=== PATIENT | female | born 1990 | race Caucasian/White ===

== ENCOUNTER 2017-11-29 | Emergency (ER) | payer MEDICAID, SELFPAY ==
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
[2017-11-29 02:36] VITALS: BP 173/103; PULSE 108; RESP 18; TEMP 36.6; O2SAT 98; BMI 34.3
--- NOTE | 2017-11-29 03:07 | HMH.EDWNDL ---
ED Disposition Clinical Impression: Head contusion, Laceration of face without complication Disposition: Home, Self-Care Condition on Discharge: Good Instructions: DI for Laceration Repair -- Simple, DI for Contusion Additional Instructions: Suture removal at family practitioner's office in one week. Rx Naproxen. 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 The time I documented below is in addition to time spent performing reported procedures but includes the following listed in this critical care notation. Medical Decision Making - Medical Records MR Comment: tetanus status updated Vital Signs: 11/29/17 02:36 11/29/17 03:49 Temperature 97.9 F 98.0 F Temperature Source Oral Oral Pulse Rate 82 Pulse Rate [Brachial] 108 H Respiratory Rate 18 16 Blood Pressure 121/66 Blood Pressure [Left Arm] 173/103 Blood Pressure Mean [Left Arm] 126 Blood Pressure Source [Left Arm] Automatic Cuff Blood Pressure Position [Left Arm] Sitting 02 Sat by Pulse Oximetry 98 Oxygen Delivery Method Room Air Room Air - Lab Data Lab results reviewed: Yes: I reviewed the patient's lab results. ETOH 68 Result diagrams: 11/29/17 00:01 11/29/17 00:01 Orders (Tests/Meds): ORDERS Category Date Time Status CT cervical spine wo con Routine Cat Scan 11/29/17 00:[address] head/brain wo con Routine Cat Scan 11/29/17 00:31 Taken XR chest 2V Routine Exams 11/29/17 00:31 Taken XR elbow RT min 3V Routine Exams 11/29/17 00:31 Taken XR pelvis 1-2V Routine Exams 11/29/17 00:31 Taken - Radiology Data #1 Image(s): Chest, Elbow, Pelvis Image Reviewed: Yes I reviewed the patient's radiology results Preliminary Findings: Normal/NAD IUD - CT Data CT Scan: Head, C-Spine Time Received: 03:[address] Reviewed: Yes: I have reviewed the patient's CT results Preliminary Findings: Normal/NAD - Tommy Inquiry Pt receiving controlled substance: No Wound/Laceration HPI - General Chief Complaint: Fall Stated Complaint: Fell down flight of steps Time Seen by Provider: 11/29/17 01:15 Mode of Arrival: Ambulatory Source of Information: Patient Limitations: No Limitations Description of Symptoms (Recalled from ER Triage Doc. by RN): TRIP AND FALL DOWN A FLIGHT OF STAIRS. C/O HEAD INJURY BUT DENIES LOC, LACERATION ABOVE UPPER LIP - History of Present Illness HPI narrative: tripped and fell down stairs, No loc, has 2.0 cm lac to upper lip. states left head tender, lip swollen, No neck pain c/o rt elbow pain, no numbness, no nausea/vomiting Location: face (upper lip) Extremity Location: Right: elbow Place: home Context: accidental, fall Associated symptoms: pain (aching) Treatments prior to arrival: cold therapy (cold damp cloth) - Related Data Home Medications Medication Instructions Recorded Confirmed Ranitidine HCl 10 mg PO DAILY 11/29/17 11/29/17 Previous Rx's Medication Instructions Recorded Naproxen [Naprosyn 500mg tablet] 500 mg PO BID PRN #20 tab 11/29/17 Allergies Allergy/AdvReac Type Severity Reaction Status Date / Time Penicillins [PENICILLINS] Allergy Unknown UNKNOWN Unverified 11/16/17 14:47 [facility] History - *Social History Smoking Status: Current every day smoker Tobacco Type: cigarettes # Packs/Day (cigarettes): 1 Alcohol Intake: current Alcohol Intake Frequency:: a few times a week Substance Use Type: denies use, marijuana, opiates - Psychiatric History Expresses thoughts of harming self/others: None Suicide Plan Description: No Plan Review of Systems - Review of Systems
--- NOTE | 2017-11-29 03:11 | ED_ITS ---
ED Disposition Clinical Impression: Head contusion, Laceration of face without complication Disposition: Home, Self-Care Condition on Discharge: Good Instructions: DI for Laceration Repair -- Simple, DI for Contusion Additional Instructions: Suture removal at family practitioner's office in one week. Rx Naproxen. 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 The time I documented below is in addition to time spent performing reported procedures but includes the following listed in this critical care notation. Medical Decision Making - Medical Records MR Comment: tetanus status updated Vital Signs: 11/29/17 02:36 11/29/17 03:49 Temperature 97.9 F 98.0 F Temperature Source Oral Oral Pulse Rate 82 Pulse Rate [Brachial] 108 H Respiratory Rate 18 16 Blood Pressure 121/66 Blood Pressure [Left Arm] 173/103 Blood Pressure Mean [Left Arm] 126 Blood Pressure Source [Left Arm] Automatic Cuff Blood Pressure Position [Left Arm] Sitting 02 Sat by Pulse Oximetry 98 Oxygen Delivery Method Room Air Room Air - Lab Data Lab results reviewed: Yes: I reviewed the patient's lab results. ETOH 68 Result diagrams: 11/29/17 00:01 11/29/17 00:01 Orders (Tests/Meds): ORDERS Category Date Time Status CT cervical spine wo con Routine Cat Scan 11/29/17 00:[address] head/brain wo con Routine Cat Scan 11/29/17 00:31 Taken XR chest 2V Routine Exams 11/29/17 00:31 Taken XR elbow RT min 3V Routine Exams 11/29/17 00:31 Taken XR pelvis 1-2V Routine Exams 11/29/17 00:31 Taken - Radiology Data #1 Image(s): Chest, Elbow, Pelvis Image Reviewed: Yes I reviewed the patient's radiology results Preliminary Findings: Normal/NAD IUD - CT Data CT Scan: Head, C-Spine Time Received: 03:[address] Reviewed: Yes: I have reviewed the patient's CT results Preliminary Findings: Normal/NAD - Tommy Inquiry Pt receiving controlled substance: No Wound/Laceration HPI - General Chief Complaint: Fall Stated Complaint: Fell down flight of steps Time Seen by Provider: 11/29/17 01:15 Mode of Arrival: Ambulatory Source of Information: Patient Limitations: No Limitations Description of Symptoms (Recalled from ER Triage Doc. by RN): TRIP AND FALL DOWN A FLIGHT OF STAIRS. C/O HEAD INJURY BUT DENIES LOC, LACERATION ABOVE UPPER LIP - History of Present Illness HPI narrative: tripped and fell down stairs, No loc, has 2.0 cm lac to upper lip. states left head tender, lip swollen, No neck pain c/o rt elbow pain, no numbness, no nausea /vomiting Location: face (upper lip) Extremity Location: Right: elbow Place: home Context: accidental, fall Associated symptoms: pain (aching) Treatments prior to arrival: cold therapy (cold damp cloth) - Related Data Home Medications Medication Instructions Recorded Confirmed Ranitidine HCl 10 mg PO DAILY 11/29/17 11/29/17 Previous Rx's
[2017-11-29 03:49] VITALS: BP 121/66; PULSE 82; RESP 16; TEMP 36.7; O2SAT 98
[2017-11-29 04:27] LABS: Microscopic, Urine URINE MICROSCOPIC (MICROSCOPIC)
[2017-11-29 05:07] LABS: Appearance,Urine Clear (Clear); Bilirubin,Urine Negative (Negative); Blood, Urine Negative (Negative); Color,Urine Yellow (Yellow); Glucose,Urine (UA) Negative (Negative); Ketones,Urine Negative (Negative); Leukocyte Esterase,Urine Negative (Negative); Nitrate,Urine Negative (Negative); Protein,Urine Negative (Negative); Specific Gravity, Urine 1.025 (1.005-1.030); Urobilinogen,Urine 0.2 EU/dl (0.2); WBC,Urine Occasional #/hpf (0-3)
[2017-11-29 05:08] LABS: Amorphous Sediment,Urine Trace /lpf; Mucus,Urine 4+ /lpf; Urine Pregnancy, HCG Qual. Negative (Negative)
[2017-11-29 05:09] LABS: Amphetamine/Metha Screen,Urine Negative ng/mL (<1000); Barbiturates Screen,Urine Negative ng/mL (<200); Benzodiazepines Screen,Urine Negative ng/mL (200); Cocaine Screen,Urine Negative ng/g (<300); Methadone Screen,Urine Negative ng/mL (<300); Opiate Screen,Urine Positive ng/mL (<300); Phencyclidine Screen,Urine Negative ng/mL (<25)
[2017-11-29 05:10] LABS: Cannabinoid Screen,Urine Positive ng/mL (<50); Hematocrit 45.6 % (37.0-47.0); Mean Corpuscular HGB Conc 32.9 g/dL (31.8-35.4); Mean Corpuscular Hemoglobin 30.3 pg (27.0-31.2); Mean Corpuscular Volume 92.1 fl (81-99); Mean Platelet Volume 7.6 fl (7.4-10.4); Neutrophils % 71.2 % (37.0-80.0); Platelet Count 234 K/mm3 (142-424); Red Blood Count 4.95 M/mm3 (4.20-5.40); Red Cell Distribution Width 12.3 % (11.5-17.5)
[2017-11-29 05:11] LABS: Basophils % 0.3 % (0.1-2.0); Eosinophils # 0.2 K/mm3 (0.0-0.4); Eosinophils % 1.5 % (0.1-12.0); Lymphocytes # 2.5 K/mm3 (0.7-4.5); Lymphocytes % 20.6 K/mm3 (10-50); Monocytes # 0.6 K/mm3 (0.1-1.0); Neutrophils # 8.6 K/mm3 (1.8-7.8)
[2017-11-29 05:14] LABS: Alanine Aminotransferase 30 U/L (12-78); Albumin Level 3.7 gm/dL (3.4-5.0); Alkaline Phosphatase 115 U/L (46-116); Anion Gap 14.7 mEq/L (5-15); Aspartate Amino Transferase 20 U/L (15-37); Bilirubin,Total 0.3 mg/dL (0.2-1.0); Blood Urea Nitrogen 11 mg/dL (7-18); Calcium 9.2 mg/dL (8.5-10.1); Carbon Dioxide 27 mmol/L (21.0-32.0); Chloride 103 mmol/L (98-107); Creatinine Clearance Estimated 132 mg/ml (0-300); Creatinine,Serum 0.91 mg/dL (0.55-1.02); Estimated Glomerular Filt Rate > 60 ml/min (>60); GFR (African American) > 60 ML/MIN (>60); Globulin 3.6 gm/dl (1.3-3.2); Glucose 85 mg/dL (74-106); Potassium 3.7 mmoL/L (3.5-5.1); Sodium 141 mmol/L (136-145); Total Protein,Serum 7.3 gm/dL (6.4-8.2)
[2017-11-29 05:34] LABS: Ethyl Alcohol 68 mg/dL (0-99)
== END 2017-11-29 03:51 | disposition home or self-care (01) ==
PROVIDERS: Emergency Provider Emergency Medicine; Family Provider Internal Medicine Adolescent Medicine; PCP Internal Medicine Adolescent Medicine
DX: S01.511A Laceration without foreign body of lip, initial encounter (principal); W10.9XXA Fall (on) (from) unspecified stairs and steps, initial encounter; Y92.019 Unspecified place in single-family (private) house as the place of occurrence of the external cause; F17.210 Nicotine dependence, cigarettes, uncomplicated; S50.311A Abrasion of right elbow, initial encounter; S30.0XXA Contusion of lower back and pelvis, initial encounter
CPT/HCPCS: 12011; 70450; 71046; 72125; 72170; 73080; 80053; 80305; 81001; 81025; 85025; 99284

== ENCOUNTER → 2018-12-28 13:03 | Outpatient (CLI) | payer MEDICAID, SELFPAY ==
--- NOTE | 2018-12-28 13:11 | XR_ITS ---
XR hip RT 2-3V w/pelvis HISTORY: ITS.REASON: EDELMIRA HIP PAIN,RHEUMATOID ARTHRITIS ORDERING PHYSICIAN: Humphrey Dickerson MD PATIENT AGE: 28 years COMPARISON: None FINDINGS: No fracture or dislocation is evident. No significant degenerative change. No lytic or blastic change. Unremarkable soft tissues. An IUD is in place IMPRESSION: Negative hip
--- NOTE | 2018-12-28 13:11 | XR_ITS ---
EXAM: XR lumbar spine min 4V HISTORY: Low back pain ITS.REASON: EDLEMIRA HIP PAIN,RHEUMATOID ARTHRITIS ORDERING PHYSICIAN: Humphrey Dickerson MD PATIENT AGE: 28 years COMPARISON: None FINDINGS: Normal alignment. No fracture or dislocation. No lytic or blastic change. No significant degenerative change. The disc spaces are preserved. IMPRESSION: Negative lumbar spine
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
== END ==
PROVIDERS: PCP Internal Medicine Adolescent Medicine; Visit Provider Internal Medicine Adolescent Medicine
DX: M25.552 Pain in left hip (principal); M25.551 Pain in right hip; Z87.39 Personal history of other diseases of the musculoskeletal system and connective tissue
CPT/HCPCS: 72110; 73502

== ENCOUNTER 2019-04-03 08:00 | Outpatient (RCR) | payer MEDICAID, SELFPAY ==
--- NOTE | 2019-02-21 18:13 | HMH.PTOPEV ---
PT Outpatient Evaluation Rehab PT Outpatient Evaluation Start: 02/21/19 17:53 Freq: Status: Active Protocol: Document 02/21/19 17:54 LEXIRAQUEL (Rec: 02/21/19 18:13 OSMAN [id number]) Electronically Signed By Lopez Trujillo, PT 02/21/19 17:54 Outpatient Therapy Subjective History Subjective History This is the initial Physical Therapy evaluation for Olivia Moreira. Pt is a 28 y/o female referred to PT for c/o B hip pain L>R. Pt rpeorts when she was 9-10 y/o she was diagnosed w/ Juvenile Rheumatoid arthritis. Pt rpeorts she went to [facility] and Took medicine and did exercises and she got better. Pt reports this time pain began in B hips ~ 4-5 years ago w/ steady increase over the last few years. Chief Complaint Pain Stiff Catches/Locks Symptom Type Ache Throb Sharp Dull Stabbing Symptoms Relieved By Heat Symptoms Aggravated By Standing Physical Activity Walking Prior Functional Limitations None Current Functional Limitations Housework Standing Squatting Recreation Activity Walking Stairs Symptom Description Intermittent Level of pain today (0-10) 4 Pain scale - at its best (0-10) 0 Pain scale - at its worst (0-10) 9 Hip/Knee Eval Gait Observation General Gait Pattern Observation No Deviations/Normal Assistive Device Assistive Devices None / NA Palpation Tenderness bilateral Hip Palpation Findings Tenderness Muscle Guarding MMT Hip Abduction Strength Grade 4- Good- Hip Adduction Strength Grade 4- Good- Hip External Rotation Strength Grade 4- Good- Hip Internal Rotation Strength Grade 4- Good- Knee Extension Strength Grade 5 Normal Knee Flexion Strength Grade 4 Good Special Tests Hip Piriformis Test Negative Left Negative Right Hip 90-90 Straight Leg Raise Test Negative Left Negative Right
== END 2019-04-03 08:05 | disposition home or self-care (01) ==
LOC: PT 08:00
PROVIDERS: Visit Provider Internal Medicine Adolescent Medicine
DX: M25.552 Pain in left hip (principal); M25.551 Pain in right hip
CPT/HCPCS: 97010; 97033; 97035; 97110; 97163; 97164

== ENCOUNTER → 2019-07-18 11:01 | Outpatient (CLI) | payer MEDICAID, SELFPAY ==
--- NOTE | 2019-07-18 11:05 | MR_ITS ---
PROCEDURE: MR HIP LT WO CON CLINICAL INDICATION: PAIN IN LEFT HIP Left hip pain with locking up COMPARISON: HIPCMLT XR hip LT 2-3V w/pelvis from 12/28/2018 TECHNIQUE: Routine multiplanar multi echo sequences are performed without gadolinium enhancement. FINDINGS: The left femoral head and neck and proximal femur have an unremarkable appearance. There is however, decreased T1 and increased T2 signal within the acetabular roof extending into the lower aspect of the ilium consistent with underlying bone marrow edema. No obvious fracture lines are visible there is a small area of decreased T1 and T2 signal along the lower aspect of the ilium on the left. This is not well defined but also has a somewhat similar appearance on the right side. No soft tissue masses. No significant effusion. IMPRESSION: There is mild bone marrow edema within the acetabular roof on the left. Etiology is indeterminate. Contusion is a consideration if there has been recent trauma. No obvious destructive lesion is evident. No soft tissue mass. There is no obvious fracture. If pain persists, would consider CT scan of this area for better bony definition. No evidence of avascular necrosis of the femoral head or other significant anomaly. Dictated by: Yosvany Guajardo MD 07/20/2019 08:01 Signed by: <Electronically signed by Yosvany Guajardo MD in [place]> 07/20/2019 08:01
== END ==
PROVIDERS: PCP Internal Medicine Adolescent Medicine; Visit Provider Internal Medicine Adolescent Medicine
DX: M25.552 Pain in left hip (principal)
CPT/HCPCS: 73721

== ENCOUNTER → 2020-01-19 16:06 | Outpatient (CLI) | payer OTHER, SELFPAY ==
--- NOTE | 2020-01-19 | XR_ITS ---
PROCEDURE: XR HIP LT 2-3V W/PELVIS Patient Age:29Y CLINICAL INDICATION: Left hip pain no injury COMPARISON: HIPCMRT XR hip RT 2-3V w/pelvis from 12/28/2018. HIPCMLT XR hip LT 2-3V w/pelvis from 12/28/2018 FINDINGS: Left hip: Intact on today's AP and frog-leg view of the left hip. No fracture or dislocation is evident.. Femoral head neck and trochanteric region intact.. Perhaps scant ridging along the base of the femoral head superiorly which is stable to 2019. Left hip joint space well maintained and unremarkable with no no significant degenerative change otherwise evident. No lytic or blastic change. Bones well mineralized.Unremarkable soft tissues. AP pelvis: Osseous pelvis intact and appears normal. Sacrum SI joints intact. Pubis, superior and inferior ramus, iliac bone intact. Both hips joint spaces well maintained. The IUD in place IMPRESSION: Left hip intact. Unremarkable Osseous pelvis intact. IUD noted Dictated by: Thong Art MD 01/20/2020 12:58 Electronically signed by Thong Art MD in [place] 01/20/2020 12:58
== END ==
PROVIDERS: PCP Internal Medicine Adolescent Medicine; Visit Provider Internal Medicine Adolescent Medicine
DX: M25.552 Pain in left hip (principal)
CPT/HCPCS: 73502

== ENCOUNTER → 2020-03-20 12:39 | Outpatient (CLI) | payer OTHER, SELFPAY ==
--- NOTE | 2020-03-20 12:39 | IR_ITS ---
PROCEDURE: IR ARTHROGRAM HIP LT CLINICAL INDICATION: hip pain/ evaluate for labral tear Left hip pain and catching COMPARISON: XR HIP LT 2-3V W/PELVIS from 01/19/2020 FINDINGS: This exam was performed in conjunction with MRI arthrogram images. Following obtaining informed consent and time-out procedure using local anesthesia with 1 percent buffered lidocaine and aseptic technique with fluoroscopic guidance, 22 gauge spinal needle was inserted into the left hip capsule via the anterior approach with needle directed at the superior aspect of the femoral neck near the femoral neck/head junction. A solution of approximately 10 mL of Optiray 320, gadolinium, and lidocaine was injected under fluoroscopic guidance. The patient tolerated the procedure well without evidence of immediate complication. The localization of the contrast was normal. Patient was then taken to the MRI suite were MRI arthrogram protocol was performed. Please see that report for further details. IMPRESSION: Unremarkable and uneventful left hip arthrogram. Dictated by: Yosvany Guajardo MD 03/21/2020 18:42 Electronically signed by Yosvany Guajardo MD in [place] 03/21/2020 18:42
--- NOTE | 2020-03-20 12:39 | MR_ITS ---
PROCEDURE: MR HIP LT W CON CLINICAL INDICATION: left hip pain/ evaluate labral tear Left hip pain and catching, chronic pain, possible labral tear COMPARISON: MR HIP LT WO CON from 07/18/2019 TECHNIQUE: Multiplanar multi echo sequences performed following the intra-articular injection of contrast. FINDINGS: There is no evidence of avascular necrosis of the left hip. The diffuse edema noted in the super acetabular region on the left has shown improvement. There is a sub articular cyst within the superior acetabular region anteriorly measuring 10 mm. There is some minimal edema in the super acetabular region but not as much as when compared to the previous exam. There are minimal osteoarthritic changes of the hips. On the sagittal fat sat T1 weighted images (see series 8, image number 18), there is a focal small area of increased signal along the anterior superior acetabular labrum suggesting a small tear of the labrum. Labrum at this area has a somewhat frayed appearance on the coronal images. Just medial to this area there is focal increased T2 signal within the acetabulum and may be part of the subarticular cystic changes. A sublabral recess is present posteriorly as a normal variant as seen on the coronal images. There is very slight increased T2 signal just lateral to the base of the greater trochanter on both sides possibly related to trochanteric bursitis. Incidental note is made of a 3 cm left ovarian cyst. IMPRESSION: 1. Suspected small tear of the anterior superior glenoid labrum laterally with a sub adjacent subarticular cyst. 2. Mild osteoarthritic changes of the hips. 3. Suspected mild bilateral trochanteric bursitis. 4. 3 cm left ovarian cyst 5. Edematous changes in the super acetabular region are somewhat less apparent Dictated by: Yosvany Guajardo MD 03/21/2020 19:07 Electronically signed by Yosvany Guajardo MD in [place] 03/21/2020 19:07
== END ==
PROVIDERS: PCP Internal Medicine Adolescent Medicine; Visit Provider Orthopaedic Surgery
DX: S73.192A Other sprain of left hip, initial encounter (principal); M25.552 Pain in left hip; G89.29 Other chronic pain
CPT/HCPCS: 73525; 73722; Q9967

== ENCOUNTER 2020-06-28 09:30 | Outpatient (RCR) | payer OTHER, SELFPAY | END 2020-06-28 09:35 | disposition home or self-care (01) | LOC: PT 09:30 | PROVIDERS: PCP Internal Medicine Adolescent Medicine | DX: M25.552 Pain in left hip (principal); Z98.890 Other specified postprocedural states | CPT/HCPCS: 97010; 97014; 97035; 97110; 97163; 97164; G0283 ==

== ENCOUNTER → 2021-09-08 11:43 | Outpatient (CLI) | payer OTHER, SELFPAY | PROVIDERS: PCP Internal Medicine Adolescent Medicine; Visit Provider Nurse Practitioner | DX: Z20.822 Contact with and (suspected) exposure to COVID-19 (principal) | CPT/HCPCS: C9803; U0003; U0005 ==

== ENCOUNTER → 2021-09-16 12:23 | Outpatient (CLI) | payer OTHER, SELFPAY ==
[2021-09-16 12:45] LABS: Basophils # 0.1 K/mm3 (0-0.2); Basophils % 0.6 % (0.1-2.0); Eosinophils # 0.1 K/mm3 (0.0-0.4); Eosinophils % 1.5 % (0.1-12.0); Hematocrit 46.7 % (37.0-47.0); Hemoglobin 15.1 g/dL (12.2-16.2); Lymphocytes # 1.6 K/mm3 (0.7-4.5); Lymphocytes % 17.9 % (10-50); Mean Corpuscular HGB Conc 32.2 g/dL (31.8-35.4); Mean Corpuscular Hemoglobin 31.9 pg (27.0-31.2); Mean Corpuscular Volume 99.1 fl (81-99); Mean Platelet Volume 7.5 fl (7.4-10.4); Monocytes # 0.5 K/mm3 (0.1-1.0); Monocytes % 5.3 % (1.7-9.3); Neutrophils # 6.6 K/mm3 (1.8-7.8); Neutrophils % 74.8 % (37.0-80.0); Platelet Count 263 K/mm3 (142-424); Red Blood Count 4.72 M/mm3 (4.20-5.40); White Blood Count 8.8 K/mm3 (4.8-10.8)
[2021-09-16 12:51] LABS: Chloride 104 mmol/L (98-107); Sodium 139 mmol/L (136-145)
[2021-09-16 12:53] LABS: Blood Urea Nitrogen 8 mg/dl (7-17)
[2021-09-16 12:54] LABS: Alanine Aminotransferase 24 U/L (12-78); Albumin/Globulin Ratio 1.6 (1.1-1.8); Alkaline Phosphatase 79 U/L (38-126); Aspartate Amino Transferase 30 U/L (14-36); Bilirubin,Total 0.5 mg/dl (0.2-1.3); Calcium 9.1 mg/dl (8.4-10.2); Carbon Dioxide 28 mmol/L (22.0-30.0); Estimated Glomerular Filt Rate 97 ml/min (>60); GFR (African American) 117 ML/MIN (>60); Globulin 2.5 g/dL (1.3-3.2); Glucose 103 mg/dl (74-100); Total Protein,Serum 6.5 g/dl (6.3-8.2)
--- NOTE | 2021-09-16 14:40 | CT_ITS ---
PROCEDURE INFORMATION: Exam: CT Abdomen And Pelvis With Contrast Exam date and time: 09/16/2021 2:40 PM Age: 30 years old Clinical indication: Abdominal pain; Localized; Right lower quadrant (rlq); Prior surgery; Surgery type: ; Additional info: Rlq pain TECHNIQUE: Imaging protocol: Computed tomography of the abdomen and pelvis with contrast. Radiation optimization: All CT scans at this facility use at least one of these dose optimization techniques: automated exposure control; mA and/or kV adjustment per patient size (includes targeted exams where dose is matched to clinical indication); or iterative reconstruction. Contrast material: ISOVUE; Contrast volume: 75 ml; Contrast route: IV; Other contrast: Oral; COMPARISON: DX XR HIP LT 2-3V W/PELVIS 01/19/2020 4:18 PM FINDINGS: Lungs: Calcified granuloma at the right lung base. Liver: Normal. No mass. Gallbladder and bile ducts: Normal. No calcified stones. No ductal dilation. Pancreas: Normal. No ductal dilation. Spleen: Normal. No splenomegaly. Adrenal glands: Normal. No mass. Kidneys and ureters: Punctate nonobstructing bilateral renal stones. Stomach and bowel: Unremarkable. No obstruction. No mucosal thickening. Appendix: No evidence of appendicitis. Intraperitoneal space: Unremarkable. No free air. No significant fluid collection. Vasculature: Unremarkable. No abdominal aortic aneurysm. Lymph nodes: Unremarkable. No enlarged lymph nodes. Urinary bladder: Unremarkable as visualized. Reproductive: IUD in place. Bones/joints: Unremarkable. No acute fracture. Left THR. Soft tissues: Chronic scarring in the subcutaneous tissues anterior to the left hip. IMPRESSION: Bilateral non-obstructing nephrolithiasis.
== END ==
PROVIDERS: Visit Provider Nurse Practitioner Family
DX: R10.31 Right lower quadrant pain (principal)
CPT/HCPCS: 36415; 74177; 80053; 85025; Q9967

== ENCOUNTER → 2021-12-17 09:56 | Outpatient (CLI) | payer OTHER, SELFPAY | PROVIDERS: Visit Provider Nurse Practitioner | DX: Z20.822 Contact with and (suspected) exposure to COVID-19 (principal) | CPT/HCPCS: C9803; U0003; U0005 ==

== ENCOUNTER → 2021-12-23 10:58 | Outpatient (CLI) | payer OTHER, SELFPAY ==
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
== END ==
PROVIDERS: PCP Internal Medicine Adolescent Medicine; Visit Provider Nurse Practitioner Obstetrics & Gynecology
DX: R10.2 Pelvic and perineal pain (principal)
CPT/HCPCS: 76830

== ENCOUNTER 2022-04-09 10:30 | Outpatient (RCR) | payer OTHER, SELFPAY | END 2022-04-09 10:35 | disposition home or self-care (01) | LOC: PT 10:30 | PROVIDERS: PCP Internal Medicine Adolescent Medicine; Visit Provider Nurse Practitioner Family | DX: M25.552 Pain in left hip (principal); Z96.642 Presence of left artificial hip joint | CPT/HCPCS: 97010; 97014; 97110; 97140; 97163; G0283 ==

== ENCOUNTER 2022-06-02 04:21 | Emergency (ER) | payer OTHER, SELFPAY ==
[2022-06-02] VITALS (7 sets, daily range): BP systolic 110–141; BP diastolic 67–90; PULSE 58–83; RESP 16–18; TEMP 36.7–37.3; O2SAT 97–99; BMI 37.5
--- NOTE | 2022-06-02 04:41 | XR_ITS ---
PROCEDURE INFORMATION: Exam: XR Right Shoulder Exam date and time: 06/02/2022 4:59 AM Age: 31 years old Clinical indication: Pain; Shoulder; Right; Additional info: Pain after working in hay TECHNIQUE: Imaging protocol: Radiologic exam of the Right shoulder. Views: 2 or more views. COMPARISON: UEAJW/ORT MRI-UP EXT ANY JNT W/O-RT 06/21/2015 4:12 PM FINDINGS: Bones/joints: No evidence of acute fracture. Soft tissues: Grossly unremarkable. IMPRESSION: No evidence of acute fracture. If symptoms persist, recommend repeat radiograph in 5-7 days.
--- NOTE | 2022-06-02 04:41 | XR_ITS ---
PROCEDURE INFORMATION: Exam: XR Right Clavicle, Complete Exam date and time: 06/02/2022 5:00 AM Age: 31 years old Clinical indication: Pain; Shoulder; Right; Additional info: Pain after working in hay TECHNIQUE: Imaging protocol: Radiologic exam of the Right clavicle. Complete exam. Views: Any number of views. COMPARISON: UEAJW/ORT MRI-UP EXT ANY JNT W/O-RT 06/21/2015 4:12 PM FINDINGS: Bones/joints: No evidence of acute fracture. Soft tissues: Grossly unremarkable. IMPRESSION: No evidence of acute fracture. If symptoms persist, recommend repeat radiograph in 5-7 days.
--- NOTE | 2022-06-02 04:41 | XR_ITS ---
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 Views: 2 views. COMPARISON: CR CXR2V XR chest 2V 03/22/2018 10:44 AM FINDINGS: Lungs: No focal consolidation. Pleural spaces: No pleural effusion. No pneumothorax. Heart/Mediastinum: Unremarkable cardiomediastinal silhouette. Bones/joints: No acute osseous findings. IMPRESSION: No focal consolidation.
[2022-06-02 04:47] LABS: Basophils # 0.1 K/mm3 (0-0.2); Basophils % 0.4 % (0.1-2.0); Eosinophils # 0.2 K/mm3 (0.0-0.4); Eosinophils % 1.6 % (0.1-12.0); Hematocrit 44.3 % (37.0-47.0); Hemoglobin 15.6 g/dL (12.2-16.2); Lymphocytes # 2.2 K/mm3 (0.7-4.5); Mean Corpuscular HGB Conc 35.1 g/dL (31.8-35.4); Mean Corpuscular Hemoglobin 31.9 pg (27.0-31.2); Mean Corpuscular Volume 90.9 fl (81-99); Mean Platelet Volume 7.3 fl (7.4-10.4); Monocytes # 0.6 K/mm3 (0.1-1.0); Monocytes % 5.1 % (1.7-9.3); Neutrophils # 8.7 K/mm3 (1.8-7.8); Neutrophils % 73.9 % (37.0-80.0); Platelet Count 273 K/mm3 (142-424); Red Blood Count 4.88 M/mm3 (4.20-5.40); Red Cell Distribution Width 12.1 % (11.5-17.5); White Blood Count 11.8 K/mm3 (4.8-10.8)
[2022-06-02 04:54] LABS: Alanine Aminotransferase 28 U/L (12-78); Albumin/Globulin Ratio 1.4 (1.1-1.8); Alkaline Phosphatase 87 U/L (38-126); Anion Gap 9.7 mEq/L (5-15); Aspartate Amino Transferase 29 U/L (14-36); Blood Urea Nitrogen 11 mg/dl (7-17); Carbon Dioxide 26 mmol/L (22.0-30.0); Chloride 106 mmol/L (98-107); Creatinine Clearance Estimated 168 mL/min (50-200); Estimated Glomerular Filt Rate 96 ml/min (>60); GFR (African American) 117 ML/MIN (>60); Globulin 2.8 g/dL (1.3-3.2); Glucose 109 mg/dl (74-100); HCG Qualitative, Serum Negative (Negative); Potassium 3.7 mmoL/L (3.5-5.1); Sodium 138 mmol/L (136-145); Total Protein,Serum 6.8 g/dl (6.3-8.2)
[2022-06-02 04:59] LABS: Bilirubin,Total 0.1 mg/dl (0.2-1.3); C-Reactive Protein 8.4 mg/L (0-4)
--- NOTE | 2022-06-02 05:02 | PC.NURSE ---
Pt gone to RAD
--- NOTE | 2022-06-02 05:11 | PC.NURSE ---
Pt back from RAD
[2022-06-02 05:13] LABS: Erythrocyte Sedimentation Rate 9 mm/hr (0-20); Procalcitonin 0.034 ng/mL (0.0-2.0)
--- NOTE | 2022-06-02 06:15 | HMH.EDGENADL ---
ED Disposition Clinical Impression: Right-sided chest wall pain Disposition: Home, Self-Care Condition on Discharge: Good Instructions: DI for Acute Pain -- Adult Additional Instructions: use meds and call pcp for follow up Prescriptions: predniSONE [Prednisone 20mg Tab] 20 mg PO BID #10 tab Transmission Status: Pending to [facility] Ketorolac Tromethamine [Toradol 10mg tablet] 10 mg PO Q6HP PRN #7 tab MDD 40mg/day PRN Reason: Moderate To Severe Pain Transmission Status: Pending to [facility] Referrals: Dimas Vo MD [Primary Care Provider] - Forms: Work/School Release - Critical Care Critical Care Time: No Attestation: On 06/02/22, the high probability of a clinically significant, sudden or life threatening deterioration of the following system(s) required my full and direct attention, intervention and personal management. The time I documented below is in addition to time spent performing reported procedures but includes the following listed in this critical care notation. Medical Decision Making - Medical Records Medical records reviewed: Yes: I reviewed the patient's medical records. - Tommy Inquiry Pt receiving controlled substance: No Vital Signs: 06/02/22 04:23 06/02/22 05:00 06/02/22 05:30 Temperature 99.1 F Temperature Source Oral Pulse Rate 70 58 L Pulse Rate [Left Radial] 83 Respiratory Rate 16 Blood Pressure 134/88 141/67 H Blood Pressure [Right Arm] 128/90 Blood Pressure Mean Blood Pressure Mean [Right Arm] 102 Blood Pressure Source [Right Arm] Automatic Cuff Blood Pressure Position [Right Arm] Sitting 02 Sat by Pulse Oximetry 98 98 97 Oxygen Delivery Method Room Air Room Air Room Air 06/02/22 06:00 06/02/22 06:01 06/02/22 06:32 Temperature 98.9 F Temperature Source Pulse Rate 67 70 63 Pulse Rate [Left Radial] Respiratory Rate 16 Blood Pressure 119/67 119/67 110/76 Blood Pressure [Right Arm] Blood Pressure Mean 77 Blood Pressure Mean [Right Arm] Blood Pressure Source [Right Arm] Blood Pressure Position [Right Arm] 02 Sat by Pulse Oximetry 97 97 Oxygen Delivery Method Room Air Room Air Room Air - Lab Data Lab results reviewed: Yes: I reviewed the patient's lab results. Lab Results 06/02/22 04:30: WBC 11.8 H, RBC 4.88, Hgb 15.6, Hct 44.3, MCV 90.9, MCH 31.9 H, MCHC 35.1, RDW 12.1, Plt Count 273, MPV 7.3 L, Neut % (Auto) 73.9, Lymph % (Auto) 19.0, [place] % (Auto) 5.1, Eos % (Auto) 1.6, Baso % (Auto) 0.4, Neut # (Auto) 8.7 H, Lymph # (Auto) 2.2, [place] # (Auto) 0.6, Eos # (Auto) 0.2, Baso # (Auto) 0.1 06/02/22 04:30: Sodium 138, Potassium 3.7, Chloride 106, Carbon Dioxide 26, Anion Gap 9.7, BUN 11, Creatinine 0.70, Estimated Creat Clear 168, Estimated GFR 96, Est GFR ( Amer) 117, Glucose 109 H, Calcium 9.0, Total Bilirubin 0.1 L, AST 29, ALT 28, Alkaline Phosphatase 87, C-Reactive Protein 8.4 H, Total Protein 6.8, Albumin 4.0, Globulin 2.8, Albumin/Globulin Ratio 1.4 06/02/22 04:30: Serum HCG, Qual Negative 06/02/22 04:30: ESR 9 06/02/22 04:30: Procalcitonin 0.034 Result diagrams: 06/02/22 04:30 06/02/22 04:30 Orders (Tests/Meds): ED MEDICATIONS Discontinued Medications Generic Name Dose Route Start Last Admin Trade Name Sallie PRN Reason Stop Dose Admin Acetaminophen 1,000 mg 06/02/22 04:38 06/02/22 04:44 Acetaminophen 500mg Tab PO 06/02/22 04:39 1,000 mg ONCE ONE Administration Hydromorphone HCl 1 mg 06/02/22 06:52 06/02/22 06:58 Hydromorphone 2mg/Ml Syringe IV 06/02/22 06:53 1 mg ONCE ONE Administration Sodium Chloride 1,000 mls @ 999 mls/hr 06/02/22 04:45 06/02/22 04:43 Sod Chlor 0.9% 1000ml Bag IV 06/02/22 05:45 999 mls/hr .Q1H1M ZURDO Administration Iopamidol 70 ml 06/02/22 07:12 06/02/22 07:13 Iopamidol-370 (76%);100ml Bottle IV 06/02/22 07:13 70 ml ONCE ONE Administration Protocol Ketorolac Tromethamine
--- NOTE | 2022-06-02 06:25 | CT_ITS ---
PROCEDURE INFORMATION: Exam: CTA Chest With Contrast Exam date and time: 06/02/2022 6:48 AM Age: 31 years old Clinical indication: Pain; On breathing; Additional info: Right clavicular pain with inspiration. TECHNIQUE: Imaging protocol: Computed tomographic angiography of the chest with contrast. 3D rendering (Not supervised by radiologist): MIP and/or 3D reconstructed images were created by the technologist. Radiation optimization: All CT scans at this facility use at least one of these dose optimization techniques: automated exposure control; mA and/or kV adjustment per patient size (includes targeted exams where dose is matched to clinical indication); or iterative reconstruction. Contrast material: ISOVUE 370; Contrast volume: 70 ml; Contrast route: INTRAVENOUS (IV); COMPARISON: CR XR CHEST 2V 06/02/2022 4:57 AM FINDINGS: Pulmonary arteries: The pulmonary arteries are very poorly opacified, such that evaluation of the peripheral pulmonary arteries is nondiagnostic. Otherwise, no evidence of a large central pulmonary embolus. Aorta: No aortic aneurysm. No aortic dissection. Lungs: Calcified right lung nodules, compatible with old granulomatous disease. Pleural spaces: No pneumothorax. No pleural effusion. Heart: No cardiomegaly. No significant pericardial effusion. Lymph nodes: Calcified right hilar/mediastinal lymph nodes, consistent with old granulomatous disease. Liver: Calcified hepatic granuloma. Spleen: Calcified splenic granulomata. Kidneys and ureters: Punctate nonobstructive calculi in the kidneys bilaterally. Bones/joints: No acute fracture. Soft tissues: Unremarkable. IMPRESSION: 1. The pulmonary arteries are very poorly opacified, such that evaluation of the peripheral pulmonary arteries is nondiagnostic. Otherwise, no evidence of a large central pulmonary embolus. 2. No definite active pulmonary process. 3. Other findings as detailed in the body of the report.
--- NOTE | 2022-06-02 06:32 | PC.NURSE ---
Pt given warm blanket for comfort. No new needs at this time.
--- NOTE | 2022-06-02 06:46 | PC.NURSE ---
Pt gone to RAD for CT
--- NOTE | 2022-06-02 06:48 | PC.NURSE ---
PT TO RADIOLOGY.
--- NOTE | 2022-06-02 06:51 | PC.NURSE ---
Family at BS
--- NOTE | 2022-06-02 07:03 | PC.NURSE ---
Pt back from RAD
--- NOTE | 2022-06-02 07:57 | PC.NURSE ---
pt to restroom
== END 2022-06-02 08:00 | disposition home or self-care (01) ==
PROVIDERS: Emergency Provider Emergency Medicine; PCP Internal Medicine Adolescent Medicine
DX: R07.89 Other chest pain (principal); Z88.0 Allergy status to penicillin; K21.9 Gastro-esophageal reflux disease without esophagitis; F41.9 Anxiety disorder, unspecified; Z72.0 Tobacco use
CPT/HCPCS: 71046; 71275; 73000; 73030; 80053; 84145; 84703; 85025; 85651; 86140; 96365; 96375; 99284; Q9967

== ENCOUNTER → 2022-08-14 09:55 | Outpatient (CLI) | payer OTHER, SELFPAY ==
--- NOTE | 2022-08-14 09:55 | US_ITS ---
PROCEDURE INFORMATION: Exam: US Right Breast, Complete Exam date and time: 08/14/2022 10:17 AM Age: 31 years old Clinical indication: Palpable area right axilla x 2 weeks TECHNIQUE: Imaging protocol: Complete ultrasound of all four quadrants of the Right breast and the retroareolar regions, including ultrasound of the axilla when performed. COMPARISON: No relevant prior studies available. FINDINGS: Breast: Sonographic images of the right breast including the retroareolar region, all 4 quadrants and the axilla do not demonstrate any solid or cystic masses. No architectural distortion or acoustical shadowing. No skin thickening or axillary adenopathy. The palpable abnormality in the right axilla corresponds to a 0.5 cm skin lesion most likely reflecting a sebaceous cyst. IMPRESSION: No sonographic evidence of malignancy. Palpable abnormality in the right axilla corresponds to a cutaneous lesion likely reflecting a sebaceous cyst.Annual bilateral mammographic screening is recommended to commence at the age of 40 unless otherwise clinically indicated.Further evaluation of a palpable abnormality should be based on clinical grounds regardless of radiographic findings or lack thereof. ASSESSMENT: BI-RADS Category 2: Benign
== END ==
PROVIDERS: PCP Internal Medicine Adolescent Medicine; Visit Provider Nurse Practitioner Obstetrics & Gynecology
DX: R22.31 Localized swelling, mass and lump, right upper limb (principal); N63.11 Unspecified lump in the right breast, upper outer quadrant; N63.31 Unspecified lump in axillary tail of the right breast
CPT/HCPCS: 76641

== ENCOUNTER → 2023-01-03 17:31 | Outpatient (CLI) | payer OTHER, SELFPAY ==
--- NOTE | 2023-01-03 17:37 | XR_ITS ---
PROCEDURE INFORMATION: Exam: XR Right Foot Complete; Alignment Exam date and time: 01/03/2023 5:39 PM Age: 32 years old Clinical indication: Pain; Foot; Bilateral; Additional info: B/l foot pain TECHNIQUE: Imaging protocol: Radiologic exam of the Right foot. Views: 3 or more views. COMPARISON: No relevant prior studies available. FINDINGS: Bones/joints: No visible fracture or dislocation. Lisfranc interval is maintained. Soft tissues: Normal. IMPRESSION: No visible fracture or dislocation.
--- NOTE | 2023-01-03 17:37 | XR_ITS ---
PROCEDURE INFORMATION: Exam: XR Left Foot Complete; Alignment Exam date and time: 01/03/2023 5:39 PM Age: 32 years old Clinical indication: Pain; Foot; Bilateral; Additional info: B/l foot pain TECHNIQUE: Imaging protocol: Radiologic exam of the Left foot. Views: 3 or more views. COMPARISON: CR FTL3 FOOT-LT-3 VIEWS 12/15/2016 4:47 PM FINDINGS: Bones/joints: No visible fracture or dislocation. Lisfranc interval is maintained. Soft tissues: Normal. IMPRESSION: No visible fracture or dislocation.
== END ==
PROVIDERS: PCP Internal Medicine Adolescent Medicine; Visit Provider Podiatrist
DX: M79.672 Pain in left foot (principal); M79.671 Pain in right foot; M72.2 Plantar fascial fibromatosis
CPT/HCPCS: 73630

== ENCOUNTER 2023-11-01 09:21 | Emergency (ER) | payer SELFPAY ==
[2023-11-01 09:30] VITALS: BP 135/77; PULSE 96; RESP 19; TEMP 36.6; O2SAT 98; BMI 39.3
--- NOTE | 2023-11-01 09:57 | EXP.UTC ---
Discharge Plan Disposition Patient Disposition: Home, Self-Care Condition: Good Prescriptions Prescriptions: New mupirocin 2 % ointment 1 applic topical TID 10 Days Qty: 22 0RF Rx Instructions: apply around finger nail as prescribed Referrals Follow up/Referrals: Humphrey Dickerson MD [Primary Care Provider] - See instructions Activity Restrictions/Add. Instructions Additional Instructions/Restrictions: Clean area with antibacterial soap and water Apply topical antibiotic ointment as prescribed Follow up with your Family Doctor or Dermatology if no improvement or any worsening of symptoms Clinical Impressions Clinical Impression: Skin problem Instructions Patient Instructions: Mupirocin Discharge ED Provider: Gianna Calderon [facility] [place] HPI General Stated complaint: rt thumb injury/infection Mode of Arrival: Ambulatory Source of Information: Patient Limitations: No Limitations Time Seen by Provider: 11/01/23 09:57 Description of Symptoms (Recalled from Triage Doc. by RN): PATIENT C/O POSSIBLE INFECTION TO RIGHT THUMB HEENT Symptoms (Recalled from RN notes): No Resp Symptoms (Recalled from RN notes): No Skin Symptoms (Recalled from RN notes): Yes MS Symptoms (Recalled from RN notes): No Functional Status (Recalled from RN notes): WNL History of Present Illness Provider Complaint: Patient states that she thinks she may have an infection on the skin around her right thumb States that she recently used some gel trinidadian recently and now she has a sore like around on the side of her nail that is tender to the touch and some redness Related Data Previous Rx's Medication Instructions Recorded mupirocin 2 % topical ointment 1 applic topical TID 10 days #22 11/01/23 grams Allergies Allergy/AdvReac Type Severity Reaction Status Date / Time Penicillins [PENICILLINS] Allergy Unknown UNKNOWN Verified 07/08/23 11:56 Worker's Comp Is this a Worker's Comp case?: No [facility] Disclaimer: The information contained in this section may have been updated after the patient was seen, as this information can be updated by other users. Medical History Plantar fasciitis, bilateral Social History Smoking Status: Current every day smoker tobacco type: cigarettes packs per day: 1 alcohol intake: current substance use type: denies use, marijuana and opiates current occupational status: employed Travel in the last 8 weeks: None household members: children housing: house ROS Obtained: Yes All systems reviewed & no additional complaints except as documented and Yes Systems reviewed as appropriate & no additional complaints except as documented Constitutional Constitutional: Reports system reviewed and no additional complaints, except as documented ENT Ears, Nose, Mouth, and Throat: Reports system reviewed and no additional complaints, except as documented and Reports as per HPI Cardiovascular Cardiovascular: Reports system reviewed and no additional complaints, except as documented and Reports as per HPI Respiratory Respiratory: Reports system reviewed and no additional complaints, except as documented and Reports as per HPI Gastrointestinal Gastrointestingal: Reports system reviewed and no additional complaints, except as documented and as per HPI Musculoskeletal Musculoskeletal: Reports system reviewed and no additional complaints, except as documented and Reports as per HPI Integumentary/Breasts Skin/Breast: Reports system reviewed and no additional complaints, except as documented and Reports as per HPI Comments: red scab sore area side of right thumb nail Physical Exam General General appearance: alert and in no apparent distress ENT ENT exam: Present mucous membranes moist Respiratory Respiratory exam: Present normal lung sounds bilaterally; Absent respiratory distress or wheezes Cardiovascu
[2023-11-01 10:20] VITALS: BP 135/77; PULSE 96; RESP 18; TEMP 36.6; O2SAT 98
== END 2023-11-01 10:20 | disposition home or self-care (01) ==
PROVIDERS: Emergency Provider Nurse Practitioner; PCP Internal Medicine Adolescent Medicine
DX: L98.9 Disorder of the skin and subcutaneous tissue, unspecified (principal); F17.210 Nicotine dependence, cigarettes, uncomplicated
CPT/HCPCS: 99203; 99212; G0463

== ENCOUNTER 2024-03-17 09:56 | Emergency (ER) | payer MEDICAID, SELFPAY ==
[2024-03-17 10:00] VITALS: BP 128/69; PULSE 97; RESP 18; TEMP 36.4; O2SAT 98; BMI 37.1
--- NOTE | 2024-03-17 10:12 | ED_ITS ---
Discharge Plan Disposition Patient Disposition: Home, Self-Care Condition: Good Prescriptions Prescriptions: New ondansetron HCl 8 mg tablet 8 mg PO Q8H PRN (Reason: nausea and vomiting) Qty: 20 0RF promethazine 25 mg tablet 25 mg PO TID PRN (Reason: nausea and vomiting) Qty: 20 0RF No Action meloxicam 7.5 mg tablet 7.5 mg PO DAILY 30 Days Qty: 30 2RF Referrals Follow up/Referrals: Humphrey Dickerson MD [Primary Care Provider] - See instructions Clinical Impressions Clinical Impression: Gastroenteritis Stand Alone Forms Stand Alone Forms: Work/School Release Instructions Patient Instructions: DI for Viral Gastroenteritis -- Adult Discharge ED Provider: Brunilda Farrell [facility] General Stated complaint: fever v/d Time Seen by Provider: 03/17/24 10:21 History of Present Illness Provider Complaint: Nausea, vomiting, diarrhea since yesterday afternoon. Low grade fever. Has not kept anything down. No other sick contacts at this time. Onset (ago): day(s) (1) Location: abdomen Relieving factors: none Exacerbating factors: none Associated symptoms: nausea/vomiting Treatments prior to arrival: none Related Data Previous Rx's Medication Instructions Recorded meloxicam 7.5 mg tablet 7.5 mg PO DAILY pain 30 days #30 01/10/24 tabs ondansetron HCl 8 mg tablet 8 mg PO Q8H PRN nausea and 03/17/24 vomiting #20 tabs promethazine 25 mg tablet 25 mg PO TID PRN nausea and 03/17/24 vomiting #20 tabs Allergies Allergy/AdvReac Type Severity Reaction Status Date / Time Penicillins [PENICILLINS] Allergy Unknown UNKNOWN Verified 01/10/24 08:26 [facility] Disclaimer: The information contained in this section may have been updated after the patient was seen, as this information can be updated by other users. Medical History Plantar fasciitis, bilateral Social History Smoking Status: Current every day smoker tobacco type: cigarettes packs per day: 1 alcohol intake: current substance use type: denies use, marijuana and opiates current occupational status: employed Travel in the last 8 weeks: None household members: children housing: house ROS Obtained: Yes All systems reviewed & no additional complaints except as documented Constitutional Constitutional: Reports fever(s) and Reports malaise Gastrointestinal Gastrointestingal: Reports diarrhea, loose stools, nausea and vomiting Physical Exam General General appearance: alert and in no apparent distress Head Head exam: atraumatic, normocephalic and normal inspection Eye Eye exam: Present normal appearance, PERRL and EOMI ENT ENT exam: Present normal exam, normal oropharynx, mucous membranes moist, TM's normal bilaterally and normal external ear exam Chest Chest inspection: Present normal inspection and symmetric chest wall rise; Absent tenderness Respiratory Respiratory exam: Present normal lung sounds bilaterally; Absent respiratory distress Cardiovascular Cardiovascular exam: Present regular rate and normal rhythm; Absent JVD Abdominal Exam Abdominal exam: Present soft and hyperactive bowel sounds; Absent distention, tenderness or guarding Extremities Exam Extremities exam: Present normal inspection, full ROM and normal capillary refill; Absent calf tenderness Neurological Exam Neurological exam: Present alert and oriented X3 Psychiatric Psychiatric exam: Present normal affect and normal mood Skin Skin exam: Present warm, dry, intact and normal color Lymphatic Lymphatic Findings: no adenopathy Medical Decision Making Tommy Inquiry Pt receiving controlled substance: No Lab Data Lab results reviewed: Yes I reviewed the patient's lab results. 03/17/24 10:35 03/17/24 10:35 Reevaluation(s) Time: 11:44 Reevaluation #1: Feeling better with fluids
[2024-03-17] MEDS: ONDANSETRON 4MG/2ML VIAL 4 MG IV (10:39)
[2024-03-17] MEDS: SODIUM CHLORIDE 0.9% 10ML FLUSH SYRINGE 10 ML IV (10:39)
[2024-03-17] MEDS: 0.9 % SODIUM CHLORIDE 1000ML 1,000 ML 999 ML IV (10:39)
[2024-03-17 11:02] LABS: Basophils # 0.1 K/mm3 (0-0.2); Basophils % 0.8 % (0.1-2.0); Eosinophils # 0.1 K/mm3 (0.0-0.4); Eosinophils % 0.6 % (0.1-12.0); Hematocrit 48.4 % (37.0-47.0); Hemoglobin 15.5 g/dL (12.2-16.2); Lymphocytes # 0.5 K/mm3 (0.7-4.5); Lymphocytes % 4.4 % (10-50); Mean Corpuscular Hemoglobin 31.3 pg (27.0-31.2); Mean Corpuscular Volume 97.7 fl (81-99); Mean Platelet Volume 8.2 fl (7.4-10.4); Monocytes # 0.3 K/mm3 (0.1-1.0); Monocytes % 2.3 % (1.7-9.3); Neutrophils # 10.4 K/mm3 (1.8-7.8); Platelet Count 227 K/mm3 (142-424); Red Blood Count 4.95 M/mm3 (4.20-5.40); Red Cell Distribution Width 13.3 % (11.5-17.5); White Blood Count 11.3 K/mm3 (4.8-10.8)
[2024-03-17 11:09] LABS: Chloride 106 mmol/L (98-107); Potassium 3.5 mmoL/L (3.5-5.1); Sodium 138 mmol/L (136-145)
[2024-03-17 11:11] LABS: Alanine Aminotransferase 37 U/L (12-78); Aspartate Amino Transferase 38 U/L (14-36); Blood Urea Nitrogen 10 mg/dl (7-17); Creatinine Clearance Estimated 190 mL/min (50-200); Estimated Glomerular Filt Rate 114 ml/min (>60); GFR (African American) 138 ML/MIN (>60)
[2024-03-17 11:12] LABS: Albumin Level 3.9 g/dl (3.5-5.0); Albumin/Globulin Ratio 1.4 (1.1-1.8); Alkaline Phosphatase 84 U/L (38-126); Anion Gap 11.5 mEq/L (5-15); Bilirubin,Total 1.2 mg/dl (0.2-1.3); Carbon Dioxide 24 mmol/L (22.0-30.0); Globulin 2.7 g/dL (1.3-3.2); Glucose 98 mg/dl (74-100); Total Protein,Serum 6.6 g/dl (6.3-8.2)
[2024-03-17 11:14] LABS: MANUAL DIFFERENTIAL MANUAL DIFFERENTIAL (MANUAL DIFF)
[2024-03-17 12:06] LABS: Lymphocytes % 4 % (10-50); Monocytes % 4 % (2-9); Neutrophils % 92 % (42-76); Platelet Estimate Normal; RBC Morphology Normal; Total Cells Counted 100
[2024-03-17 12:09] VITALS: BP 128/69; PULSE 97; RESP 18; TEMP 36.4; O2SAT 98
== END 2024-03-17 12:12 | disposition home or self-care (01) ==
PROVIDERS: Emergency Provider Physician Assistant; PCP Internal Medicine Adolescent Medicine
DX: A08.4 Viral intestinal infection, unspecified (principal); R11.2 Nausea with vomiting, unspecified; R19.7 Diarrhea, unspecified; R50.9 Fever, unspecified; F17.210 Nicotine dependence, cigarettes, uncomplicated
CPT/HCPCS: 80053; 85007; 85025; 96361; 96374; 99212; 99214; G0463; J2405

== ENCOUNTER 2024-04-26 10:30 | Outpatient (RCR) | payer MEDICAID, SELFPAY ==
--- NOTE | 2024-04-26 13:55 | HMH.PTOPEV ---
PT Outpatient Evaluation Rehab PT Outpatient Evaluation Start: 04/26/24 11:47 Freq: Status: Active Protocol: Document 04/26/24 11:47 IVETT (Rec: 04/26/24 13:55 IVETT [id number]) E-signed By Jean Michael, PT Outpatient Therapy Subjective History Subjective Chief Complaint Pain,Stiff Symptom Type Throb,Sharp Symptoms Relieved By Rest/Positioning Symptoms Aggravated By Standing,Physical Activity, Walking Prior Functional Limitations None Current Functional Limitations Housework,Standing,Recreation Activity,Walking,Stairs Symptom Description Constant but Variable Level of pain today (0-10) 3 Pain scale - at its best (0-10) 2 Pain scale - at its worst (0-10) 8 Ankle/Foot Eval Gait Observation General Gait Pattern Observation No Deviations/Normal Palpation Tenderness bilateral Ankle/Foot Palpation Findings Tenderness Ankle/Foot Palpation Overall Comment B calcaneal tubercels L>R 3/4 ROM right Ankle/Foot Dorsiflexion w/Knee Extended 8 Active Range Motion (degrees) Ankle/Foot Plantar Flexion Active Range WNL of Motion (degrees) Ankle/Foot Eversion Active Range of 21 Motion (degrees) Ankle/Foot Inversion Active Range of WNL Motion (degrees) Ankle/Foot ROM Limitations Soft Tissue Tightness Great Toe ROM Reason Not Measured Within Functional Limits left Ankle/Foot Dorsiflexion w/Knee Extended -4 Active Range Motion (degrees) Ankle/Foot Plantar Flexion Active Range WNL of Motion (degrees) Ankle/Foot Eversion Active Range of 4 Motion (degrees) Ankle/Foot Inversion Active Range of 23 Motion (degrees) Great Toe ROM Reason Not Measured Within Functional Limits MMT bilateral Ankle Dorsiflexion Strength Grade 5 Normal Ankle Plantarflexion Strength Grade 5 Normal Foot Eversion Strength Grade 4- Good- Foot Inversion Strength Grade 4- Good- Special Tests Ankle Anterior Drawer Test Negative Left,Negative Right Foot Interdigital Neuroma Test Negative Left,Negative Right Lower Extremity Functional Index Activities Today, do you or would you have any difficulty at all with: a.Any of your usual work, housework or Quite a bit of difficulty school activities b. Your usual hobbies, recreational or Quite a bit of difficulty sporting activities c. Getting into or out of the bath Quite a bit of difficulty d. Walking between rooms Quite a bit of difficulty e. Putting on your shoes or socks Quite a bit of difficulty f. Squatting Moderate difficulty g. Lifting an object, like a bag of A little bit of difficulty groceries from the floor h. Performing light activities around No difficulty your home i. Performing heavy activities around Quite a bit of difficulty your home j. Getting into or out of a car Moderate difficulty k. Walking 2 blocks Quite a bit of difficulty l. Walking a mile Extreme difficulty or unable to perform activity m. Going up or down 10 stairs (about 1 Quite a bit of difficulty flight of stairs) n. Standing for 1 hour Quite a bit of difficulty o. Sitting for 1 hour Moderate difficulty p. Running on even ground Extreme difficulty or unable to perform activity q. Running on uneven ground Extreme difficulty or unable to perform activity r. Making sharp turns while running fast Extreme difficulty or unable to perform activity s. Hopping Extreme difficulty or unable to perform activity t. Rolling over in bed Moderate difficulty LEFI Score Lower Extremity Functional Index Score 24 Outpatient Therapy Assessment Impairments Problems/Impairmments Palpation Tenderness,Impaired Range of Motion,Impaired Strength,Impaired Gait Pattern ,Impaired Walking,Impaired Standing,Impaired Household Care,Impaired Stair Climbing, Impaired Incline Stepping, Impaired Stepping on Uneven Surface,Impaired Recreational Activities,Impaired Running, Impaired Work Activities, Subjective C/O Pain Prognosis Rehab Potential Good Clinical Impression Consistent with Diagnosis Yes Short Term Goals Number of Weeks 2 Decrease Subjective C/O Pain Yes: 10 at worst Patient to be Ind w/ HEP Yes Fdc Goals Number of Weeks 4-6 Decreased Palpation Tenderness Yes: 1/ Increase Range of Motion Yes: WNL Increase Strength Yes: 5/5 Increase Ability to Walk Yes: 30 min without difficulty Improve Ability For Household Care Yes Improve Tolerance to Work Activities Yes Decrease Subjective C/O Pain Yes: 10 at worst Outpatient Therapy Plan of Care Treatment Plan May Include Therapeutic Exercise Including Home Yes Exercise Program Manual Therapy Techniques Yes Neuromuscular Re-education Yes Therapeutic Activities to Return to Yes Previous Functional/Work Level Gait Training Yes ADL/Self Care Education Yes Dry Needling Yes Thermal Modalities Yes Electrical Stimulation Yes Ultrasound/Phonophoresis Yes Iontophoresis Yes Orthotics/Bracing/Splinting Yes Vasopneumatic Compression Pump Yes Massage Yes Eval/Re-Eval Yes Frequency Times per week 2 Duration Number of Weeks 4-6 Addendums This patient is a candidate for social No or vocational rehab? Patient/Guardian verbally acknowledges Yes understanding of treatment program and consents to further treatment? Patient/Guardian verbally acknowledges Yes understanding of diagnosis, prognosis and goals for treatment? Eval Complexity PT Charges 77454 - Moderate Complexity Shoulder/Elbow Eval Shoulder Objective Measurements Elbow Objective Measurements PHYSICIAN CERTIFICATION: I certify the specified therapy services for Olivia Moreira are required, authorized, and reviewed every 30 days.
== END 2024-04-26 10:35 | disposition home or self-care (01) ==
LOC: PT 10:30
PROVIDERS: Visit Provider Podiatrist
DX: M72.2 Plantar fascial fibromatosis (principal); M21.6X1 Other acquired deformities of right foot; M21.6X2 Other acquired deformities of left foot
CPT/HCPCS: 97163

== ENCOUNTER 2025-01-22 12:15 | Outpatient (CLI) | payer MEDICAID, SELFPAY ==
[2025-01-22 13:22] LABS: Albumin Level 4.3 g/dl (3.5-5.0); Chloride 102 mmol/L (98-107); Sodium 139 mmol/L (136-145)
[2025-01-22 13:23] LABS: Potassium 4.2 mmoL/L (3.5-5.1)
[2025-01-22 13:25] LABS: Alanine Aminotransferase 27 U/L (12-78); Albumin/Globulin Ratio 1.8 (1.1-1.8); Alkaline Phosphatase 83 U/L (38-126); Anion Gap 10.2 mEq/L (5-15); Aspartate Amino Transferase 27 U/L (14-36); Bilirubin,Total 0.4 mg/dl (0.2-1.3); Blood Urea Nitrogen 13 mg/dl (7-17); Carbon Dioxide 31 mmol/L (22.0-30.0); Estimated Glomerular Filt Rate 95 ml/min (>60); GFR (African American) 115 ML/MIN (>60); Globulin 2.4 g/dL (1.3-3.2); Lipase 253 U/L (23-300); Total Protein,Serum 6.7 g/dl (6.3-8.2)
[2025-01-22 13:26] LABS: Calcium 9.8 mg/dl (8.4-10.2); Glucose 85 mg/dl (74-100)
== END 2025-01-22 23:59 | disposition home or self-care (01) ==
LOC: LAB 12:16
PROVIDERS: PCP Internal Medicine Adolescent Medicine; Visit Provider Physician Assistant
DX: R10.13 Epigastric pain (principal)
CPT/HCPCS: 36415; 80053; 83690

== ENCOUNTER 2025-05-23 07:46 | Emergency (ER) | payer MEDICAID, SELFPAY ==
[2025-05-23] VITALS (9 sets, daily range): BP systolic 102–143; BP diastolic 50–90; PULSE 45–57; RESP 10–20; TEMP 36.4–37.1; O2SAT 95–100; BMI 37.8
--- OUTSIDE RECORDS SUMMARY | 2025-05-23 07:51 | XMS_ITS | Clinical Summary ---
Author Organization Healthcare Address [address] 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 Name Role Phone Unavailable Primary Care Provider Unavailabl e Immunizations Immunization Administration Dates Next Due Influenza, injectable, quadrivalent 12/06/2019 Social History Tobacco Use Types Packs/Day Years Used Date Smoking Tobacco: Every Day Comments Unknown Sex and Gender Information Value Date Recorded Sex Assigned at Not on file Legal Sex Female 8:54 PM EDT Gender Identity Not on file Sexual Orientation Not on file Last Filed Vital Signs Vital Sign Reading Time Taken Comments Blood Pressure 140/89 03/27/2020 4:13 PM EDT Pulse 69 12/06/2019 9:24 AM EST Temperature - - Respiratory Rate - - Oxygen Saturation - - Inhaled Oxygen Concentration - - Weight 81.8 kg (180 lb 5.4 oz) 03/27/2020 4:13 P M EDT Height 162.6 cm (5' 4 ) 03/27/2020 4:13 PM EDT Body Mass Index 30.95 03/27/2020 4:13 PM EDT Plan of Treatment Not on file
--- OUTSIDE RECORDS SUMMARY | 2025-05-23 07:51 | XMS_ITS | Clinical Summary ---
Author Organization [facility] Address [address] [place] [address] Phone Care Team Providers Care Airbrush Artist Photography Name Role Phone Dimas Vo MD Primary Care Provider [phone] Allergies Active Allergy Reactions Criticality Noted Date Comments Penicillins Other (See Comments) 04/10/2020 Unknown reaction Medications UNABLE TO FIND OTC acid reflux medication PRN Active phentermine (ADIPEX-P) 37.5 mg Oral Tablet Take 37.5 mg by mouth every morning (before breakfast). Active ALPRAZolam (XANAX) 0.25 mg Oral TabletIndicatio ns:anxiety Take by mouth 3 times daily. Indications: anxious Active ibuprofen (ADVIL;MOTRIN) 800 mg Oral Tablet Take 800 mg by mouth 3 times daily. Active indomethacin (INDOCIN SR) 75 mg Oral Capsule, Sustained Release Take 1 Cap by mouth 2 times daily. 60 Cap 2 0 Active Additional Information Patient not taking.Reason: Pt electing to not take the medication, Reported on 02/04/2021 aspirin 325 mg Oral Tablet Take 1 Tab by mouth 2 times daily. 60 Tab 02/07/2021 2:26 PM EST 1 Active oxyCODONE-aceta minophen (PERCOCET) 5-325 mg Oral Tablet take 1 to 2 tablets by mouth every 4 to 6 hours as needed 10 Tab 02/07/2021 2:26 PM EST 1 Active promethazine (PHENERGAN) 25 mg Oral Tablet Take 1 tablet by mouth every 6 hours as needed for nausea 12 Tab 02/07/2021 2:26 PM EST 1 Active diclofenac (VOLTAREN) 75 mg Oral Tablet, Delayed Release (E.C.) 2 Active fluticasone propionate (FLONASE) 50 mcg/actuation [place], Suspension 2 Active Active Problems No known active problems Surgical History Surgery Date Site/Laterality Comments LEEP INTRAUTERINE DEVICE INSERTION HIP ARTHROSCOPY 04/19/2020 Left LEFT HIP ARTHROSCOPY LABRAL REPAIR PINCER AND CAM RESECTION; Surgeon: Bhavesh Coy MD; Location: [facility]; Service: Orthopedics Medical devices from this surgery are in the Medical Devices section. SECTION 11/29/2015 - 11/28/2016 HIP ARTHROPLASTY 02/07/2021 Left LEFT TOTAL HIP REPLACEMENT; Surgeon: Bhavesh Coy MD; [facility]; Service: Orthopedics Medical devices from this surgery are in the Medical Devices section. Medical History Medical History Date Comments Arthritis rheumatoid arthr its during [place] Family History Medical History Relation Name Comments No Known Problems Father Thyroid Disease Mother Relation Name Status Comments Father Alive Mother Alive Social History Tobacco Use Types Packs/Day Years Used Date Smoking Tobacco: Every Day Cigarettes 0.5 10 Smokeless Tobacco: Never Comments:smoked this am Alcohol Use Standard Drinks/Week Comments Yes 0 (1 standard drink = 0.6 oz pur e alcohol) one can a month Comments No Sex and Gender Information Value Date Recorded Sex Assigned at Not on file Legal Sex Female 7:56 AM EDT Gender Identity Not on file Sexual Orientation Not on file Obstetrics History Last Filed Vital Signs Vital Sign Reading Time Taken Comments Blood Pressure 124/74 02/07/2021 2:59 PM EST Pulse 80 02/07/2021 2:59 PM EST Temperature 36.7 C (98 F) 02/07/2021 2:59 PM EST Respiratory Rate 16 02/07/2021 2:59 PM EST Oxygen Saturation 100% 02/07/2021 2:59 PM EST Inhaled Oxygen Concentration - - Weight 88.9 kg (196 lb) 02/07/2021 9:16 AM EST Height 162.6 cm (5' 4 ) 02/07/2021 9:16 AM EST Body Mass Index 33.64 02/07/2021 9:16 AM EST Plan of Treatment Health Maintenance Due Date Last Done Comments Annual Wellness Exam 1991 DTaP/TDaP/Td (1 - Tdap) 2007 Hepatitis B Vaccine (1 of 3 - 19+ 3-dose series) 2007 Cervical Cancer Screening 2009 Pap Smear 2009 HPV/Pap Cotest 2018 COVID-19 Vaccine (2023-2 5 season) 2024 Influenza Vaccine (Season Ended) 2025 12/06/2019, 12/06/2019, 09/20/2018 Meningococcal B Vaccine Aged Out No l onger eligible based on patient's age to complete this topic Pneumococcal Vaccine 0-49 Aged Out No longer eligible based on patient's age to complete this topic Medical Devices Implanted Type Area Planer Off Bearer Device Identifier Shelf Expiration Date Model / Serial / Lot [employer]d Knotless Flex Cinch Lock - [id number] Implanted:Qty: 1 on 04/19/2020 by Bhavesh Coy MD at [facility] Left: Hip WILLIE:ENDOSCOP Y [id number] 02/22/2021 [id number] / / [id number] Barneveld Knotless Flex Cinch Lock - [id number] Implanted:Qty: 1 on 04/19/2020 by Bhavesh Coy MD at [facility] Left: Hip WILLIE:ENDOSCOP Y [id number] 04/18/2021 [id number] / / [id number] Barneveld Knotless Flex Cinch Lock - [id number] Implanted:Qty: 1 on 04/19/2020 by Bhavesh Coy MD at [facility] Left: Hip WILLIE:ENDOSCOP Y [id number] 02/22/2021 [id number] / / [id number] Cup Actb Trident Ii Sz-D 48mm Clstr Scr 3hl Tritan Hap Prim - [id number] Implanted:Qty: 1 on 02/07/2021 by Bhavesh Coy MD at [facility] Left: Hip WILLIE:ORTHOPED ICS [id number] 12/02/2025 [id number] / / [id number] Liner Actb Sz-D [id number] Trident Prim 0d 7.9mmx3 - [id number] Implanted:Qty: 1 on 02/07/2021 by Bhavesh Coy MD at [facility] Left: Hip WILLIE:ORTHOPED ICS [id number] 10/31/2025 [id number] / / [id number] Stem Sz4 42mm Ofst Accolade Ii Prim Recon Ti Plasm [place] [employer] - [id number] Implanted:Qty: 1 on 02/07/2021 by Bhavesh Coy MD at [facility] Left: Hip WILLIE:ORTHOPED ICS [id number] 01/06/2026 [id number] / / [id number] Head Fem V-40 36mm-5mm Nk Biolox Delta Cerm Tapr Prim Mod - [id number] Implanted:Qty: 1 on 02/07/2021 by Bhavesh Coy MD at [facility] Left: Hip WILLIE:ORTHOPED ICS [id number] 01/01/2026 [id number] / / [id number] Insurance POS Care Teams Airbrush Artist Photography Relationship Specialty Start Date End Date Dimas Vo MD [address] [facility] [address] [place] [address] PCP - General Internal Medicine-Adolescent Medicine 04/10/20
[2025-05-23 07:59] LABS: Microscopic, Urine URINE MICROSCOPIC (MICROSCOPIC)
--- NOTE | 2025-05-23 08:01 | CT_ITS ---
FINAL REPORT TECHNIQUE: After the administration of intravenous contrast, axial images were obtained through the abdomen and pelvis by computed tomography. This study was performed with technique to keep radiation doses as low as reasonably achievable, (ALARA). Individualized dose reduction techniques using automated exposure control or adjustment of the MA and/or KV according to the patient's size were employed. CLINICAL HISTORY: RLQ pain, vomiting COMPARISON: 09/16/2021 FINDINGS: Abdomen: The lung bases are clear. The liver is normal in size and attenuation. The spleen is unremarkable. The adrenals are normal. The pancreas is unremarkable. There is mild right hydroureteronephrosis without obstructing stone. This could be due to recently passed stone, nonvisualized distal ureteral stone or infection. The aorta is normal in caliber. There is no free fluid or adenopathy. Pelvis: There is streak artifact arising from the left hip arthroplasty. An incidental cyst is noted in the left ovary measuring slightly greater than 3 cm with a benign appearance. The appendix is normal. An IUD is present the urinary bladder is unremarkable. There is no free fluid or adenopathy. IMPRESSION: Interval development of mild right hydroureteronephrosis without obstructing stone. Differential diagnosis includes recently passed stone, nonvisualized distal ureteral stone obscured by streak artifact or infection. Reviewed, Interpreted and Dictated by Elaine Stack MD Transcribed by Shabana Vaughn Authenticated and [facility]
[2025-05-23] MEDS: LACTATED RINGERS 1000ML 1,000 ML 999 ML IV (08:03)
[2025-05-23] MEDS: ONDANSETRON 4MG/2ML VIAL 4 MG IV (08:03)
[2025-05-23 08:10] LABS: Basophils # 0.1 K/mm3 (0-0.2); Basophils % 0.5 % (0.1-2.0); Eosinophils # 0.2 Kmm3 (0.0-0.4); Eosinophils % 1.7 % (0.1-12.0); Hematocrit 43.3 % (37.0-47.0); Hemoglobin 14.7 g/dL (12.2-16.2); Immature Granulocytes # 0.03 10^3uL; Immature Granulocytes % 0.3 %; Lymphocytes # 2.2 K/mm3 (0.7-4.5); Lymphocytes % 21.1 % (10-50); Mean Corpuscular HGB Conc 33.9 g/dL (31.8-35.4); Mean Corpuscular Hemoglobin 31.6 pg (27.0-31.2); Mean Corpuscular Volume 93.1 fl (81-99); Monocytes # 0.7 K/mm3 (0.1-1.0); Monocytes % 7.3 % (1.7-9.3); Neutrophils # 7.1 K/mm3 (1.8-7.8); Neutrophils % 69.1 % (37.0-80.0); Nucleated Red Blood Cells # 0 10^3/uL; Nucleated Red Blood Cells % 0 %; Platelet Count 287 K/mm3 (142-424); Red Blood Count 4.65 M/mm3 (4.20-5.40); Red Cell Distribution Width 12.1 % (11.5-17.5); Red Cell Distribution Width-SD 41.3 fL; White Blood Count 10.2 K/mm3 (4.8-10.8)
[2025-05-23] MEDS: HYDROMORPHONE 2MG/ML SYRINGE 0.5 MG IV (08:12)
[2025-05-23 08:16] LABS: Blood, Urine 3+ (Negative); Glucose,Urine (UA) Negative (Negative); Ketones,Urine 1+ (Negative); Leukocyte Esterase,Urine 1+ (Negative); Nitrate,Urine POSITIVE (Negative); Protein,Urine 3+ (Negative); Specific Gravity, Urine 1.025 (1.005-1.030)
[2025-05-23 08:17] LABS: Urine Pregnancy, HCG Qual. Negative (Negative)
--- NOTE | 2025-05-23 08:18 | HMH.EDGENADL ---
Discharge Plan Disposition Patient Disposition: Home, Self-Care Prescriptions Prescriptions: New ketorolac 10 mg tablet 10 mg PO Q8H PRN (Reason: pain) 5 Days Qty: 15 0RF tamsulosin 0.4 mg capsule 0.4 mg PO DAILY Qty: 7 0RF ondansetron 4 mg tablet,disintegrating 4 mg PO Q6H PRN (Reason: nausea and vomiting) Qty: 10 0RF cefdinir 300 mg capsule 300 mg PO BID 7 Days Qty: 14 0RF oxycodone 5 mg tablet 5 mg PO Q6H PRN (Reason: pain) Qty: 10 0RF No Action albuterol sulfate 90 mcg/actuation HFA aerosol inhaler inhalation meloxicam 7.5 mg tablet 7.5 mg PO DAILY 30 Days Qty: 30 2RF Mirena 21 mcg/24 hr (8 yrs) 52 mg intrauterine device intrauterine doxycycline hyclate 100 mg capsule 100 mg PO BID 10 Days Qty: 20 0RF benzonatate 100 mg capsule 100 mg PO TID PRN (Reason: cough) Qty: 30 0RF methylprednisolone [Medrol (Jose)] 4 mg tablets,dose pack See Rx Instructions PO PER PKG DIR Qty: 21 0RF Rx Instructions: PO PER PKG DIR for 6 days Referrals Follow up/Referrals: Humphrey Dickerson MD [Primary Care Provider, Internal Medicine] - See instructions Activity Restrictions/Add. Instructions Additional Instructions/Restrictions: You were evaluated in the emergency department today. You were diagnosed with a kidney stone. Follow-up closely with urology. We do not have an interventional urologist at our healthcare facility, but one close option is Dr. Caesar Hazel in [place] ([facility] - [address], [address], [place] [address] - [phone]). Please make sure you drink plenty of fluids and stay orally hydrated. Toradol is an NSAID like ibuprofen and aleve, so do not take other NSAIDs while taking this medication. Try getting by with toradol and Tylenol, but you may choose to take the narcotic pain medication provided to you in the event of severe pain not controlled by these medications. Do not drive or operate heavy machinery while taking narcotic pain medication, as it can be sedating. Narcotic pain medication can be addicting and can cause constipation. Follow-up closely with your primary care provider as well. Return to the emergency department for new or worsening symptoms such as significant worsening in pain, fever greater than 100.4 ?F, intractable nausea and vomiting. Take Tylenol 1000 mg every 6 hours (4 times daily) and Toradol 10 mg every 8 hours as needed with food and water to prevent GI upset and kidney damage. Zofran before oxycodone if you are having breakthrough pain. Flomax every day in order to help relax the ureter. Strain urine in order to try to catch the stone. Clinical Impressions Clinical Impression: Urinary tract infection, Ureterolithiasis Print Language Print Language: Sammarinese Discharge ED Provider: Shivam Roblero General Adult HPI General Chief complaint: PAIN Stated complaint: severe abd pain, vomiting Time Seen by Provider: 05/23/25 07:49 Mode of Arrival: Ambulatory Source of Information: Patient Description of Symptoms (Recalled from ER Triage Doc. by RN): pt presents to the ED with right pain in her back and abdomen. pt states that she woke from a sleep with sharp stabbing pain in her right side that has gotten worse and radiates to her back and abdomen. pt reports she feel like her intestines are twisting together . nausea and vomiting noted. History of Present Illness HPI narrative: Please note that above description of symptoms, in this electronic medical record under categorization of recalled from ER triage doctor by RN are reflective of an initial nursing assessment, however, is not reflective of my full history and physical exam that was personally taken and clarified. Consequentially, this preceding description of symptoms, which may include the patient's categorized chief complaint in the EMR, do not reflect my personal clinical impression, and the ultimate description of history of present illness and patient stated complaints should be deferred to this section of the note. Unless stated otherwise or congruent with this section of the note, additional signs, symptoms, or incongruence should be interpreted as inaccurate with my clinical impression. Related Data Home Medications ?Medication ?Instructions ?Recorded ?Confirmed albuterol sulfate 90 mcg/actuation inhalation 08/02/24 01/18/25 aerosol inhaler levonorgestrel (Mirena) intrauterine 08/31/24 01/18/25 Previous Rx's ?Medication ?Instructions ?Recorded meloxicam 7.5 mg tablet 7.5 mg PO DAILY pain 30 days #30 01/10/24 tabs benzonatate 100 mg capsule 100 mg PO TID PRN cough #30 caps 01/18/25 doxycycline hyclate 100 mg capsule 100 mg PO BID 10 days #20 caps 01/18/25 methylprednisolone 4 mg tablets in See Rx Instructions PO PER PKG DIR 01/18/25 a dose pack (Medrol (Jose)) #21 tabs cefdinir 300 mg capsule 300 mg PO BID 7 days #14 caps 05/23/25 ketorolac 10 mg tablet 10 mg PO Q8H PRN pain 5 days #15 05/23/25 tabs ondansetron 4 mg disintegrating 4 mg PO Q6H PRN nausea and 05/23/25 tablet vomiting #10 tabs oxycodone 5 mg tablet 5 mg PO Q6H PRN pain #10 tabs 05/23/25 tamsulosin 0.4 mg capsule 0.4 mg PO DAILY #7 caps 05/23/25 Allergies Allergy/AdvReac Type Severity Reaction Status Date / Time Penicillins (PENICILLINS) Allergy Unknown UNKNOWN Verified 01/18/25 12:43 [facility] Disclaimer: The information contained in this section may have been updated after the patient was seen, as this information can be updated by other users. Medical History (Updated 05/23/25 @ 11:18 by Shivam Roblero MD) Sinusitis Plantar fasciitis, bilateral Social History Smoking Status: Current every day smoker tobacco type: cigarettes packs per day: 1 alcohol intake: current alcohol intake frequency: holidays/special occasions only substance use type: denies use, marijuana and opiates current occupational status: employed Travel in the last 8 weeks?: None household members: children housing: house Have you lived/traveled outside US in past 30 days?: No Contact w/someone who lives/traveled outside US past 30 days?: No Exposure to someone with infectious disease in past 14 days?: No Do you have a fever (greater than 100.4 F or 38 C)?: No Have you tested positive for COVID-19?: No Exposed to someone with COVID-19 in past 14 days?: No Do you have a sore throat?: No Do you have a cough?: No Do you have any weakness?: No Do you have any diarrhea?: No Are you experiencing any unusual bleeding?: No Do you have any muscle aches/pain?: No Do you have any abdominal pain?: Yes Are you experiencing loss of taste or smell?: No Other Medical History Have you received the Flu Vaccine for this season: No Have you received the Pneumonia Vaccine: No ROS Obtained: Yes All systems reviewed & no additional complaints except as documented Physical Exam General General appearance: alert and in distress (Secondary to vomiting) Head Head exam: atraumatic and normocephalic Eye Eye exam: Present normal appearance, PERRL and EOMI Neck Neck exam: Present normal inspection, full ROM and trachea midline Respiratory Respiratory exam: Absent respiratory distress, wheezes, stridor, accessory muscle use or prolonged expiratory phase Cardiovascular Cardiovascular exam: Present other (Pulses equal symmetric in upper and lower extremities) Abdominal Exam Abdominal exam: Present soft and tenderness; Absent distention, guarding, rebound, rigidity or pulsatile mass Extremities Exam Extremities exam: Absent edema Neurological Exam Neurological exam: Present alert, oriented X3 and CN II-XII intact; Absent motor sensory deficit Skin Skin exam: Present warm and dry; Absent diaphoresis or erythema Medical Decision Making Medical Records Medical records reviewed: Yes I reviewed the patient's medical records. Screening: Per USPSTF and CDC recommendations, given the prevalence of disease in our region, it is our hospital?s policy to screen for HIV and viral Hepatitis for all patients aged 18 and over and those with ongoing risk factors. Tommy Inquiry Pt receiving controlled substance: No Tommy was queried for this patient: No Vital Signs: 05/23/25 07:58 05/23/25 08:00 05/23/25 08:06 Temperature 97.6 F 97.6 F Temperature Source Oral Oral Pulse Rate 55 L 46 L Pulse Rate [Right] 46 L Respiratory Rate 16 16 Blood Pressure 134/77 143/90 H Blood Pressure [Right Arm] 143/90 H Blood Pressure Mean Blood Pressure Mean [Right Arm] 107 Blood Pressure Source Automatic Cuff Blood Pressure Source [Right Arm] Automatic Cuff Blood Pressure Position Supine Blood Pressure Position [Right Arm] Supine 02 Sat by Pulse Oximetry 99 100 99 Oxygen Delivery Method Room Air Room Air 05/23/25 08:31 05/23/25 09:28 05/23/25 09:31 Temperature Temperature Source Pulse Rate 45 L 45 L 45 L Pulse Rate [Right] Respiratory Rate 20 14 Blood Pressure 141/82 H 102/81 L 135/83 Blood Pressure [Right Arm] Blood Pressure Mean 88 Blood Pressure Mean [Right Arm] Blood Pressure Source Blood Pressure Source [Right Arm] Blood Pressure Position Blood Pressure Position [Right Arm] 02 Sat by Pulse Oximetry 95 100 99 Oxygen Delivery Method 05/23/25 10:01 05/23/25 10:30 Temperature Temperature Source Pulse Rate 57 L 55 L Pulse Rate [Right] Respiratory Rate 10 L 15 Blood Pressure 116/54 L 119/66 Blood Pressure [Right Arm] Blood Pressure Mean 83 Blood Pressure Mean [Right Arm] Blood Pressure Source Blood Pressure Source [Right Arm] Blood Pressure Position Blood Pressure Position [Right Arm] 02 Sat by Pulse Oximetry 99 100 Oxygen Delivery Method Lab Data Lab Results 05/23/25 07:51: Urine Color Red, Urine Appearance Turbid, Urine pH 5.0, Ur Specific [place] 1.025, Urine Protein 3+ A, Urine Glucose (UA) Negative, Urine Ketones 1+, Urine Blood 3+ A, Urine Nitrate Positive A, Urine Bilirubin Negative, Urine Urobilinogen 2.0, Ur Leukocyte Esterase 1+ A, Urine RBC 10-20, Urine WBC Occasional, Ur Squamous Epith Cells Occasional, Urine Bacteria Trace, Urine HCG, Qual Negative 05/23/25 08:03: WBC 10.2, RBC 4.65, Hgb 14.7, Hct 43.3, MCV 93.1, MCH 31.6 H, MCHC 33.9, RDW 12.1, Plt Count 287, MPV 10.0, Neut % (Auto) 69.1, Lymph % (Auto) 21.1, [place] % (Auto) 7.3, Eos % (Auto) 1.7, Baso % (Auto) 0.5, Neut # (Auto) 7.1, Lymph # (Auto) 2.2, [place] # (Auto) 0.7, Eos # (Auto) 0.2, Baso # (Auto) 0.1, Sodium 140, Potassium 3.8, Chloride 106, Carbon Dioxide 26, Anion Gap 11.8, BUN 14, Creatinine 0.80, Estimated Creat Clear 153, Estimated GFR 81, Est GFR ( Amer) 98, Glucose 105 H, Calcium 8.9, Total Bilirubin 0.5, AST 33, ALT 27, Alkaline Phosphatase 78, Total Protein 7.0, Albumin 4.1, Globulin 2.9, Albumin/Globulin Ratio 1.4, Lipase 91, HCV Ab AJNEY w/Rflx PCR Qn Negative, HIV Ag/Ab Combo Qual Negative 05/23/25 08:03 05/23/25 08:03 Orders (Tests/Meds): ED MEDICATIONS Discontinued Medications Generic Name Dose Route Start Last Admin Trade Name Freq PRN Reason Stop Dose Admin Cephalexin HCl 1,000 mg 05/23/25 08:33 05/23/25 08:41 Cephalexin 500mg Capsule PO 05/23/25 08:34 1,000 mg ONCE ONE Administration Hydromorphone HCl 0.5 mg 05/23/25 08:01 05/23/25 08:12 Hydromorphone 2mg/Ml Syringe IV 05/23/25 08:02 0.5 mg ONCE ONE Administration Hydromorphone HCl 1 mg 05/23/25 09:40 05/23/25 09:48 Hydromorphone 2mg/Ml Syringe IV 05/23/25 09:41 1 mg ONCE ONE Administration Lactated Ringer's 1,000 mls @ 999 mls/hr 05/23/25 07:55 05/23/25 08:03 Lactated Ringer's 1000 Ml Bag IV 05/23/25 08:55 999 mls/hr .Q1H1M ONE Administration Iopamidol 75 ml 05/23/25 08:44 05/23/25 08:48 Iopamidol-370 (76%);100ml Bottle IV 05/23/25 08:45 75 ml ONCE ONE Administration Ketorolac Tromethamine 15 mg 05/23/25 08:21 05/23/25 08:27 Ketorolac 30mg/Ml Vial IV 05/23/25 08:22 15 mg ONCE ONE Administration Ondansetron HCl 4 mg 05/23/25 07:55 05/23/25 08:03 Ondansetron 4mg/2ml Vial IV 05/23/25 07:56 4 mg ONCE ONE Administration Sodium Chloride 10 ml 05/23/25 08:44 05/23/25 08:48 Sodium Chloride 0.9% 10ml Syr (Rad Only) IV 05/23/25 08:45 10 ml ONCE ONE Administration ORDERS Category Date Time Status CT abdomen pelvis w con Stat Cat Scan 05/23/25 08:01 Completed CBC w/Auto Diff [Complete Blood Count Auto Diff] Stat Lab 05/23/25 08:03 Completed CMP [Comprehensive Metabolic Panel] Stat Lab 05/23/25 08:03 Completed HIV Combo Stat Lab 05/23/25 08:03 Completed Hepatitis C Ab Qual. W/ RFX Stat Lab 05/23/25 08:03 Completed Lipase Stat Lab 05/23/25 08:03 Completed UA [Urinalysis and Microscopic] Stat Lab 05/23/25 07:51 Completed Urine , HCG Qual. Stat Lab 05/23/25 07:51 Completed Urine Culture Stat Micro 05/23/25 07:51 Received Medical Decision Narrative: 34-year-old female presenting with abdominal pain and vomiting. She states that she started having abdominal pain earlier this morning, 05/23. Shortly after that, developed vomiting. Vomiting is nonbloody, nonbilious. No diarrhea. Abdominal pain is right lower quadrant, does not radiate. Has never had pain like this before. Does have an IUD in, does not think she is , but there is a chance. No vaginal discharge, bleeding, urinary symptoms, etc. Has not taken anything for the pain as she has not been able to keep anything down. History obtained with patient. On arrival, in obvious distress secondary to near intractable retching. Patient tearful. Nontachycardic. Abdomen is soft, but tender in right lower quadrant with mild to moderate tenderness. No signs of peritonitis. Differential includes , ectopic , appendicitis, cholecystitis, pancreatitis, gastritis, gastroenteritis, ileitis, IBS, IBD, obstruction, among others. Patient given Zofran, fluids, Dilaudid. Urine was obtained. After this returned negative, patient given Toradol. Independent interpretation of workup with no urine hCG, urinalysis with blood, protein, leukocyte esterase and nitrates consistent with UTI. CT scan of the abdomen and pelvis with no evidence of appendicitis, but patient does have nephrolithiasis with mild to moderate upstream hydronephrosis on the right. I contacted the radiologist regarding read and he states that the density is likely nephrolithiasis, but difficult to discern definitively, so did not formally addended read. States that stones are near phleboliths and difficult to find the ureter in that sample, so he really is unsure if there is a kidney stone or not. Clinically patient still has nephrolithiasis and requires another dose of Dilaudid. Following the ureter down on axial cuts, definitively at the UVJ 4 mm stone. [facility] was contacted and case was discussed with urology. Urologist on-call stated that if patient is not having fever, tachycardia, white count, signs of infection, not to be treated as infected stone. Also states that nitrite and leukocyte esterase positive urine probably due to contaminated sample and requested catheter urine. I do not feel this is necessarily true or necessary. Patient has occasional squamous cells, so generally pretty clean sample. Declined patient. [facility] was contacted. Urologist at [facility] stated that if patient has normal white count, normal kidney function, pain is controlled, no systemic signs or symptoms, okay for outpatient follow-up with oral antibiotics. I had a conversation with patient and she is feeling much better after pain meds, agreeable to home-going with meds. Will send patient home with Toradol, oxycodone, Zofran, antibiotics, and Flomax. Because patient at baseline without signs or symptoms of clinical decompensation, deemed appropriate for discharge. Results were relayed to patient who voiced understanding and were agreeable to outpatient management and follow up. I discussed my clinical impression with patient and answered all questions. At this time, the evidence for any other entities in the differential is insufficient to warrant any further testing or ED observation. This was explained as well. Advisory was given that persistent or worsening symptoms require further evaluation. I confirmed the understanding of this discussion. [employer]er disclaimer Much of this encounter note is an electronic senior web engineer spoken language to printed text. Electronic senior web engineer of the spoken language may permit errors. Although I have reviewed the note, some errors may still exist. Critical Care Critical Care Time Critical Care Time: No
[2025-05-23 08:19] LABS: Albumin Level 4.1 g/dl (3.5-5.0); Chloride 106 mmol/L (98-107); Potassium 3.8 mmoL/L (3.5-5.1); Sodium 140 mmol/L (136-145)
[2025-05-23 08:22] LABS: Alanine Aminotransferase 27 U/L (12-78); Albumin/Globulin Ratio 1.4 (1.1-1.8); Alkaline Phosphatase 78 U/L (38-126); Anion Gap 11.8 mEq/L (5-15); Aspartate Amino Transferase 33 U/L (14-36); Bilirubin,Total 0.5 mg/dl (0.2-1.3); Blood Urea Nitrogen 14 mg/dl (7-17); Calcium 8.9 mg/dl (8.4-10.2); Carbon Dioxide 26 mmol/L (22.0-30.0); Creatinine Clearance Estimated 153 mL/min (50-200); Estimated Glomerular Filt Rate 81 ml/min (>60); GFR (African American) 98 ML/MIN (>60); Globulin 2.9 g/dL (1.3-3.2); Glucose 105 mg/dl (74-100); Lipase 91 U/L (23-300)
[2025-05-23 08:23] LABS: Appearance,Urine Turbid (Clear); Color,Urine Red (Yellow)
[2025-05-23 08:27] LABS: Bilirubin,Urine Negative (Negative)
[2025-05-23] MEDS: KETOROLAC 30MG/ML VIAL 15 MG IV (08:27)
[2025-05-23 08:30] LABS: Bacteria,Urine Trace /lpf; Squamous Epithelial Cell,Urine Occasional #/hpf (0-5); WBC,Urine Occasional #/hpf (0-3)
[2025-05-23] MEDS: cephALEXin 500MG CAPSULE 1000 MG PO (08:41)
--- NOTE | 2025-05-23 08:46 | PC.NURSE ---
pt back from RAD
[2025-05-23] MEDS: SODIUM CHLORIDE 0.9% 10ML SYR (RAD ONLY) 10 ML IV (08:48)
[2025-05-23] MEDS: IOPAMIDOL-370 (76%);100ML BOTTLE 75 ML IV (08:48)
--- NOTE | 2025-05-23 09:22 | PC.NURSE ---
I rounded on the pt. She is still having pain. no needs voiced. call rice in reach. MD notified of pain.
--- NOTE | 2025-05-23 09:46 | PC.NURSE ---
Called [facility] for a patient transfer but they had no coverage for urology today, i spoke with and he asked me to call [facility]. will call back to talk with him.
[2025-05-23 09:48] LABS: HIV Combo NEGATIVE (Negative)
[2025-05-23] MEDS: HYDROMORPHONE 2MG/ML SYRINGE 1 MG IV (09:48)
--- NOTE | 2025-05-23 09:50 | PC.NURSE ---
is speaking with [facility] at this time.
[2025-05-23 09:56] LABS: Hepatitis C Ab Qual. W/ RFX NEGATIVE (Negative)
--- NOTE | 2025-05-23 09:57 | PC.NURSE ---
[facility] declined.
--- NOTE | 2025-05-23 10:00 | PC.NURSE ---
speaking with the radiologist about the pts scan
--- NOTE | 2025-05-23 10:12 | PC.NURSE ---
Called [facility] for a patient transfer. They are going to get Dr. Hernandez on the phone and call back.
--- NOTE | 2025-05-26 08:42 | PC.NURSE ---
Urine culture results reviewed by Dr. Mendez. No new orders received at this time.
== END 2025-05-23 11:31 | disposition home or self-care (01) ==
PROVIDERS: Emergency Provider Emergency Medicine; PCP Internal Medicine Adolescent Medicine
DX: R10.31 Right lower quadrant pain (principal); N13.39 Other hydronephrosis; N13.4 Hydroureter; N39.0 Urinary tract infection, site not specified; R11.2 Nausea with vomiting, unspecified; F17.210 Nicotine dependence, cigarettes, uncomplicated
CPT/HCPCS: 74177; 80053; 81001; 81025; 83690; 85025; 86803; 87086; 87389; 96361; 96374; 96375; 96376; 99285; J1171; J1885; J2405; J7120; Q9967

== ENCOUNTER 2025-08-09 10:20 | Outpatient (CLI) | payer MEDICAID, SELFPAY ==
--- NOTE | 2025-08-09 10:28 | XR_ITS ---
FINAL REPORT CLINICAL HISTORY: ACUTE RT-FLANK PAIN COMPARISON: None FINDINGS: A single supine view the abdomen was obtained. The bowel gas pattern is nonspecific but nonobstructive. There is moderate stool in the right colon. There is an IUD in the pelvis. No renal stones are identified. Osseous structures are within normal limits. IMPRESSION: Nonspecific but nonobstructive bowel gas pattern with a moderate stool burden Reviewed, Interpreted and Dictated by Viv Ramirez MD Transcribed by Susan Barone Authenticated and . [facility]
--- OUTSIDE RECORDS SUMMARY | 2025-08-09 10:33 | XMS_ITS | Clinical Summary ---
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 Name Role Phone Dimas Vo MD Primary Care Provider [phone] Allergies Active Allergy Reactions Criticality Noted Date [...] Active fluticasone propionate (FLONASE) 50 mcg/actuation Nasl [place], Suspension 2 Active Active Problems No known active problems Surgical History Surgery Date Site/Laterality Comments LEEP INTRAUTERINE DEVICE INSERTION HIP ARTHROSCOPY 04/19/2020 Left LEFT HIP ARTHROSCOPY LABRAL REPAIR PINCER AND CAM RESECTION; Surgeon: Bhavesh Coy MD; [facility]; Service: Orthopedics Medical devices from this surgery are in the Medical Devices section. SECTION 11/29/2015 - 11/28/2016 HIP ARTHROPLASTY 02/07/2021 Left LEFT TOTAL HIP REPLACEMENT; Surgeon: Bhavesh Coy MD; [facility]; Service: Orthopedics Medical devices from this surgery [...] Smear 2009 HPV/Pap Cotest 2018 COVID-19 Vaccine ( - 2023-2 5 season) 2025 Influenza Vaccine (#1) 2025 0, 12/06/2019, 09/20/2018 Meningococcal B Vaccine Aged Out No l onger eligible based on patient's age to complete this topic Pneumococcal Vaccine 0-49 Aged Out No longer eligible based on patient's age to complete this topic Medical Devices Implanted Type Area Raw Juice Weigher Device Identifier Shelf Expiration Date Model / Serial / Lot [employer] Knotless Flex Cinch Lock - [id number] Implanted:Qty: 1 on 04/19/2020 by Bhavesh Coy MD at [facility] Left: Hip WILLIE:ENDOSCOP Y [id number] 02/22/2021 [id number] / / [id number] Mokena Knotless Flex Cinch Lock - [id number] Implanted:Qty: 1 on 04/19/2020 by Bhavesh Coy MD at [facility] Left: Hip WILLIE:ENDOSCOP Y [id number] 04/18/2021 [id number] / / [id number] Mokena Knotless Flex Cinch Lock - [id number] Implanted:Qty: 1 on 04/19/2020 by Bhavesh Coy MD at [facility] Left: Hip WILLIE:ENDOSCOP Y [id number] 02/22/2021 [id number] / / [id number] Cup Actb Trident Ii Sz-D 48mm Clstr Scr 3hl Tritan Hap Prim - [id number] Implanted:Qty: 1 on 02/07/2021 by Bhavesh Coy MD at [facility] Left: Hip WILLIE:ORTHOPED ICS [id number] 12/02/2025 702-04-48D / / [id number] Liner Actb Sz-D 11a16-40wn Trident Prim 0d 7.9mmx3 - [id number] Implanted:Qty: 1 on 02/07/2021 by Bhavesh Coy MD at [facility] Left: Hip WILLIE:ORTHOPED ICS [id number] 10/31/2025 623-00-36D / / [id number] Stem Sz4 42mm Ofst Accolade Ii Prim Recon Ti Plasm Celoron Ctd - [id number] Implanted:Qty: 1 on 02/07/2021 by Bhavesh Coy MD at [facility] Left: Hip WILLIE:ORTHOPED ICS [id number] 01/06/2026 [id number] / / [id number] Head Fem V-40 36mm-5mm Nk Biolox Delta Cerm Tapr Prim Mod - [id number] Implanted:Qty: 1 on 02/07/2021 by Bhavesh Coy MD at [facility] Left: Hip WILLIE:ORTHOPED ICS [id number] 01/01/2026 6570-0-036 / / [id number] Insurance POS Care Teams Gas Engine Operator Generators Relationship Specialty Start Date End Date Dimas Vo MD [address] [facility] [address] [place] [address] PCP - General Internal Medicine-Adolescent Medicine 04/10/20
--- OUTSIDE RECORDS SUMMARY | 2025-08-09 10:33 | XMS_ITS | Clinical Summary ---
Author Organization [facility] Address [address] [place] [address] Care Team Providers Care 3Rd Mate Name Role Phone Dimas Vo M.D. Primary Care Provider [phone] Source Comments [facility] is fully rolled out with thefollowing exceptions:General Clinical Research [facility] Allergies Active Allergy Reactions Criticality Noted Date Comments Penicillins 01/07/2021 Patient is unsure of reaction because it was when she was little. Medications phentermine (ADIPEX-P) 37.5 MG capsule Take by mouth 1 time a day. This prescription contains days' supply. Active Active Problems No known active problems Social History Tobacco Use Types Packs/Day Years Used Date Smoking Tobacco: Never Assessed Intimate Partner Violence Answer Date R ecorded If you are in a relationship , do you feel safe in that relationship? Yes 01/07/2021 If you are in a relationship , do you feel safe in that relationship? Yes 01/07/2021 Safety and Environment Answer Date Dejuan rded Do you have any concerns of physical abuse, sexual abuse, or neglect of your child? No 01/07/2021 Adult hurting you or family (11-18) Not on file 01/07/2021 Someone touched you in a sexual way? (11-18) Not on file 01/07/2021 Is someone hurting your or your family? No 01/07/2021 Historical abuse worry Not on file If you have firearms in the home, are they all in locked storage AND unloaded? Not on file 01/07/2021 Comments No Sex and Gender Information Value Date Recorded Sex Assigned at Not on file Legal Sex Female 12:12 PM EST Gender Identity Not on file Sexual Orientation Not on file Last Filed Vital Signs Vital Sign Reading Time Taken Comments Blood Pressure 99/61 01/07/2021 12:05 PM EST Pulse 80 01/07/2021 12:05 PM EST Temperature 36.2 C (97.2 F) 01/07/2021 11:54 AM EST Respiratory Rate 16 01/07/2021 12:0 5 PM EST Oxygen Saturation 98% 01/07/2021 12: 05 PM EST Inhaled Oxygen Concentration - - Weight 87.5 kg (192 lb 14.4 oz) 01/07/2021 8:45 AM EST Height 159 cm (5' 2.6 ) 12/04/2020 9:19 AM EST Body Mass Index 34.61 12/04/2020 9:19 AM EST Plan of Treatment Health Maintenance Due Date Last Done Comments MMR IMMUNIZATION (1 of 1 - S tandard series) 1989 DTAP/Tdap/Td IMMUNIZATION (1 - Tdap) 1995 VARICELLA IMMUNIZATION (1 of 2 - 13+ 2-dose series) 2001 HEPATITIS B IMMUNIZATION (1 of 3 - 19+ 3-dose series) 2007 HPV IMMUNIZATION (1 - 3-dose SCDM series) 2015 AMB SEASONAL FLU VACCINE (#1) 07/30/2025 COVID-19 Vaccine (2023-2 5 season) 2025 HIB IMMUNIZATION Aged Out No longer e ligible based on patient's age to complete this topic IPV IMMUNIZATION Aged Out No longer e ligible based on patient's age to complete this topic MCV4 IMMUNIZATION Aged Out No longer eligible based on patient's age to complete this topic MENINGOCOCCAL B VACCINE Aged Out No l onger eligible based on patient's age to complete this topic PNEUMOCOCCAL IMMUNIZATION Aged Out No longer eligible based on patient's age to complete this topic Respiratory Syncytial Virus (RSV) <20mo Aged Out No longer eligible b ased on patient's age to complete this topic Insurance [employer] NON-TRADITIONAL Care Teams 3Rd Mate Relationship Specialty Start Date End Date Dimas Vo M.D. [facility] [address] [facility] [address] [place] [address] PCP - General 01/07/21
--- OUTSIDE RECORDS SUMMARY | 2025-08-09 10:33 | XMS_ITS | Clinical Summary ---
Author Organization [facility] Address [address] 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 [employer] Name Role Phone Unavailable Primary Care Provider Unavailabl e Encounters Date Type Department Care Team Description 05/23/2025 Orders Only External Location [address] [place] [address] Provider, External from Last 3 Months Immunizations Immunization Administration Dates Next Due Influenza, [...] EDT Plan of Treatment Not on file Procedures Procedure Name Priority Date/Time Associated Diagnosis Comments CT OUTSIDE IMAGES 05/23/2025 8:43 AM EDT from Last 3 Months Results * CT OUTSIDE IMAGES (05/23/2025 8:43 AM EDT) Anatomical Region Laterality Modality Computed Tomogra phy 05/23/2025 8:43 AM EDT us External Provider IMG CT PROCEDURES Final Result from Last 3 Months
--- OUTSIDE RECORDS SUMMARY | 2025-08-09 10:33 | XMS_ITS | Patient Health Record ---
[facility] Address [address] [place] [id number] Care Team Providers Care Special Ed Assistant Name Role Phone KristynJemima Primary Care Provider Sahil Fajardo Unavailable [phone] Allergies Allergen (clinical drug ingredient) Drug/Non Drug Allergy documented on EMR Reaction Allergy Type Onset Date Status Substance with penicillin structure and antibacterial mechanism of action (substance) Penicillins Unknown Drug Allergy Active Medications Medication SIG (Take, Route, Frequency, Duration) Notes Start Date End Date Status Mirena (52 MG) 20 MCG/DAY 1 ea by intrauteral administration 1X; Duration: 1 dose(s) Active Ventolin HFA 108 (90 Base) MCG/ACT 2 puff(s) inhaled 4 times a day 07/18/2011 Active Zithromax Z-Jose 2 PILLS FIRST DAY THEN ONE DAILY FOR 4 DAYS ORALLY DIRECTED *Please review and pick correct strength-formulati on from [employer] options. If intended option is not shown, discontinue and re-order from Quick Search* 07/18/2011 Active Pseudoeph-Bromphen- DM 30-2-10 MG/5ML 5 mL orally 4 times a day 07/18/2011 Active HYDROcodone Bit-Homatrop MBr 5-1.5 MG 1 tab(s) orally every 4 hours 07/18/2011 Active Patanase 0.6 % 2 spray(s) in each nostril 2 times a day 07/18/2011 Active Immunizations Vaccine Route Administration Date Status Comme nts tuberculin (ppd) ID Intradermal 02/23/2006 Administered tuberculin (ppd) ID Intradermal 12/12/2007 Administered xGardasil IM Intramuscular 01/18/2007 Administered xGardasil IM Intramuscular 03/18/2007 Administered Plan Of Treatment No Information Medications Administered Medication Instructions Date of Administration Dosage Notes depo provera 02/15/2006 0.5 mL depo provera 07/20/2006 phenergan 25 mg/ml 04/20/2007 25 mg Medical (General) History Medical History History ICD Code cervical dysplasia allergic rhinitis Surgical History Surgery Date(Month/Year) LEE 2002 Hospitalization History Reason Date(Month/Year) arthritis R abdominal pain, Cyst on R ovary, ER vi sit 8-10
== END 2025-08-09 23:59 | disposition home or self-care (01) ==
LOC: RAD 10:20
PROVIDERS: PCP Internal Medicine Adolescent Medicine
DX: R93.3 Abnormal findings on diagnostic imaging of other parts of digestive tract (principal); R10.9 Unspecified abdominal pain
CPT/HCPCS: 74018